=== PATIENT | male | born 1950 | race Caucasian/White ===

== ENCOUNTER 2019-11-22 07:58 | Outpatient (REF) | payer MEDICARE, OTHER, SELFPAY ==
[2019-11-22 08:52] LABS: Alanine Aminotransferase 31 U/L (0-40); Albumin Level 4.3 g/dL (3.5-5.0); Alkaline Phosphatase 47 U/L (39-117); Anion Gap 11 (12-20); Aspartate Amino Transferase 29 U/L (5-37); Bilirubin Total 0.5 mg/dL (0.0-1.0); Blood Urea Nitrogen 19 mg/dL (9-16); Calcium 8.9 mg/dL (8.4-10.2); Carbon Dioxide 30 mmol/L (22-29); Chloride 104 mmol/L (96-108); Cholesterol 191 mg/dL; Estimated Glomerular Filt Rate > 60; Glucose Fasting 112 mg/dL (60-99); HDL Cholesterol 44 mg/dL; LDL Cholesterol Calculated 134 mg/dl; Potassium 4.5 mmol/l (3.3-5.1); Sodium 140 mmol/L (135-145); Total Protein 6.4 g/dL (6.5-8.0); Triglycerides 66 mg/dL
[2019-11-22 09:15] LABS: Estimated Average Glucose 123 mg/dL; Hemoglobin A1c % 5.9 %
== END 2019-11-22 07:59 | disposition home or self-care (01) ==
LOC: HO.LAB 07:58
PROVIDERS: PCP Internal Medicine; Visit Provider Internal Medicine
DX: E78.5 Hyperlipidemia, unspecified (principal); R73.01 Impaired fasting glucose
CPT/HCPCS: 80053; 80061; 83036

== ENCOUNTER 2020-02-14 09:12 | Outpatient (REF) | payer MEDICARE, OTHER, SELFPAY ==
[2020-02-14 11:01] LABS: Alanine Aminotransferase 30 U/L (0-40); Albumin Level 4.4 g/dL (3.5-5.0); Alkaline Phosphatase 46 U/L (39-117); Anion Gap 9 (12-20); Aspartate Amino Transferase 23 U/L (5-37); Bilirubin Total 0.3 mg/dL (0.0-1.0); Blood Urea Nitrogen 15 mg/dL (9-16); Calcium 8.9 mg/dL (8.4-10.2); Carbon Dioxide 32 mmol/L (22-29); Chloride 104 mmol/L (96-108); Cholesterol 176 mg/dL; Estimated Glomerular Filt Rate > 60; Glucose Fasting 128 mg/dL (60-99); HDL Cholesterol 48 mg/dL; LDL Cholesterol Calculated 119 mg/dl; Potassium 4.7 mmol/l (3.3-5.1); Sodium 140 mmol/L (135-145); Total Protein 6.6 g/dL (6.5-8.0); Triglycerides 45 mg/dL
== END 2020-02-14 09:13 | disposition home or self-care (01) ==
LOC: HO.LAB 09:12
PROVIDERS: PCP Internal Medicine; Visit Provider Internal Medicine
DX: E78.00 Pure hypercholesterolemia, unspecified (principal); R73.01 Impaired fasting glucose
CPT/HCPCS: 36415; 80053; 80061

== ENCOUNTER 2020-07-15 07:08 | Outpatient (REF) | payer MEDICARE, OTHER, SELFPAY ==
[2020-07-15 07:48] LABS: MANUAL DIFF FLAG NO
[2020-07-15 07:55] LABS: Basophils Absolute Auto 0.1 X10*3/uL (0.0-0.2); Basophils Percent Auto 1.7 % (0-2); Eosinophils Absolute Auto 0.6 X10*3/uL (0.0-0.4); Eosinophils Percent Auto 10.6 % (0-4); Glucose Urine UA NEG (NEG); Hematocrit 47.3 % (42-52); Hemoglobin 15.6 g/dl (14.0-18.0); Imm Gran Abs Auto 0.02 X10*3/uL (0.00-0.03); Imm Gran Pct Auto 0.3 % (0.0-0.4); Leukocyte Esterase Urine NEG (NEG); Lymphocytes Absolute Auto 1.6 X10*3/uL (1.2-4.9); Lymphocytes Percent Auto 27.9 % (20-40); Mean Corpuscular Hemoglobin 31.4 pg (27.0-33.0); Mean Corpuscular Volume 95.2 fL (80-98); Mean Platelet Volume 10.9 fL (9.4-12.4); Monocytes Absolute Auto 0.6 X10*3/uL (0.1-1.2); Monocytes Percent Auto 10.9 % (2-11); Neutrophils Absolute Auto 2.8 X10*3/uL (2.0-8.3); Neutrophils Percent Auto 48.6 % (45-73); Nitrite Urine NEG (NEG); Platelet Count 222 X10*3/uL (160-400); Red Blood Count 4.97 X10*6/uL (4.60-5.80); Red Cell Distribution Width 12.9 % (11.0-16.0); Specific Gravity - Urine 1.025 (1.005-1.025); Urine Blood NEG (NEG); Urine Ketones NEG (NEG); Urine Protein NEG (NEG-TRACE); White Blood Count 5.9 X10*3/uL (4.8-10.8)
[2020-07-15 07:58] LABS: Appearance Urine HAZY; Color Urine YELLOW
[2020-07-15 08:06] LABS: Alanine Aminotransferase 33 U/L (0-40); Albumin Level 4.3 g/dL (3.5-5.0); Alkaline Phosphatase 45 U/L (39-117); Anion Gap 13 (12-20); Aspartate Amino Transferase 37 U/L (5-37); Bilirubin Total 0.5 mg/dL (0.0-1.0); Blood Urea Nitrogen 20 mg/dL (9-16); Calcium 9.1 mg/dL (8.4-10.2); Carbon Dioxide 27 mmol/L (22-29); Chloride 104 mmol/L (96-108); Cholesterol 182 mg/dL; Estimated Glomerular Filt Rate > 60; Glucose Fasting 112 mg/dL (60-99); HDL Cholesterol 50 mg/dL; LDL Cholesterol Calculated 123 mg/dl; Potassium 4.3 mmol/L (3.3-5.1); Sodium 140 mmol/L (135-145); Total Protein 6.6 g/dL (6.5-8.0); Triglycerides 46 mg/dL
[2020-07-15 08:27] LABS: Prostate Specific Antigen Scr 0.87 ng/mL (<0.05-4.0); TSH reflex Free T4 1.19 uIU/mL (0.32-4.0)
== END 2020-07-15 07:09 | disposition home or self-care (01) ==
LOC: HO.LAB 07:08
PROVIDERS: PCP Internal Medicine; Visit Provider Internal Medicine
DX: Z00.00 Encounter for general adult medical examination without abnormal findings (principal); Z12.5 Encounter for screening for malignant neoplasm of prostate; E78.00 Pure hypercholesterolemia, unspecified; R73.01 Impaired fasting glucose; K21.9 Gastro-esophageal reflux disease without esophagitis; J44.9 Chronic obstructive pulmonary disease, unspecified; E66.3 Overweight
CPT/HCPCS: 36415; 80053; 80061; 81003; 84153; 84443; 85025

== ENCOUNTER → 2020-07-26 09:29 | Outpatient (REF) | payer MEDICARE, OTHER, SELFPAY ==
--- NOTE | 2020-07-26 09:33 | CA_ITS ---
Acquisition Time: 2020-07-26 09:41:45 Total Exercise Time: 00:09:11 Test Indications: Chest Pain Medications: CYCLOBENZAPRINE XOPENEX LORAZAPAM MECLIZINE PANTOPRAZOLE TRAMADOL Protocol: PARDEEP Max HR: 130 BPM 86% of Pred: 151 BPM Max BP: 180/070 mmHG Max Work Load: 10.4 METS Exercise stress test with exercise 9 min 11 sec of Pardeep protocol, with mild shortness of breath, no chest discomfort or palpitations, with rare isolated PVC and 3 ventricular cuplets in stage 3, without EKG changes meeting criteria for ischemia. Test reviewed with Dr Marrero. Referred By: Sunny Gallagher Overread By: DISHA FLETCHER
== END ==
LOC: HO.CARD 09:29
PROVIDERS: PCP Internal Medicine; Visit Provider Internal Medicine
DX: R07.9 Chest pain, unspecified (principal); E78.00 Pure hypercholesterolemia, unspecified; R73.01 Impaired fasting glucose
CPT/HCPCS: 93017

== ENCOUNTER 2020-08-09 09:02 | Outpatient (REF) | payer MEDICARE, OTHER, SELFPAY ==
--- NOTE | 2020-08-09 10:09 | PFT_ITS ---
Forced vital capacity is slightly decreased. FEV1/RTJ60-24 are moderately decreased. MVV slightly decreased. Post bronchodilator therapy, there is a significant improvement in FVC, FEV1, VCM80-24. Total lung capacity is normal. Residual volume moderately increased. Diffusion capacity is slightly decreased. CONCLUSION: Obstructive airway disorder, moderately severe. Good response to bronchodilator therapy. These findings are consistent with asthma/COPD overlap syndrome. Clinical correlation recommended. MD NARGIS Aquino/ANGELITA / [id number]
== END 2020-08-09 09:03 | disposition home or self-care (01) ==
LOC: HO.RESP 09:02
PROVIDERS: PCP Internal Medicine; Visit Provider Internal Medicine
DX: J44.9 Chronic obstructive pulmonary disease, unspecified (principal)
CPT/HCPCS: 94060; 94727; 94729

== ENCOUNTER 2020-11-21 10:08 | Outpatient (REF) | payer MEDICARE, OTHER, SELFPAY ==
[2020-11-21 10:32] LABS: MANUAL DIFF FLAG NO
[2020-11-21 11:04] LABS: Appearance Urine CLEAR; Color Urine YELLOW; Glucose Urine UA NEG (NEG); Leukocyte Esterase Urine NEG (NEG); Nitrite Urine NEG (NEG); Urine Blood NEG (NEG); Urine Ketones NEG (NEG); Urine Protein NEG (NEG-TRACE)
[2020-11-21 11:06] LABS: Basophils Absolute Auto 0.1 X10*3/uL (0.0-0.2); Basophils Percent Auto 1.5 % (0-2); Eosinophils Absolute Auto 0.4 X10*3/uL (0.0-0.4); Eosinophils Percent Auto 7.5 % (0-4); Hematocrit 47.2 % (42-52); Hemoglobin 15.2 g/dl (14.0-18.0); Imm Gran Abs Auto 0.02 X10*3/uL (0.00-0.03); Imm Gran Pct Auto 0.4 % (0.0-0.4); Lymphocytes Absolute Auto 1.2 X10*3/uL (1.2-4.9); Lymphocytes Percent Auto 20.9 % (20-40); Mean Corpuscular HGB Conc 32.2 g/dl (31.0-36.0); Mean Corpuscular Hemoglobin 30.9 pg (27.0-33.0); Mean Corpuscular Volume 95.9 fL (80-98); Mean Platelet Volume 10.3 fL (9.4-12.4); Monocytes Absolute Auto 0.5 X10*3/uL (0.1-1.2); Monocytes Percent Auto 9.6 % (2-11); Neutrophils Absolute Auto 3.3 X10*3/uL (2.0-8.3); Neutrophils Percent Auto 60.1 % (45-73); Platelet Count 234 X10*3/uL (160-400); Red Blood Count 4.92 X10*6/uL (4.60-5.80); Red Cell Distribution Width 13.3 % (11.0-16.0); White Blood Count 5.5 X10*3/uL (4.8-10.8)
[2020-11-21 11:32] LABS: Alanine Aminotransferase 33 U/L (0-40); Albumin Level 4.4 g/dL (3.5-5.0); Alkaline Phosphatase 59 U/L (39-117); Anion Gap 9 (12-20); Aspartate Amino Transferase 30 U/L (5-37); Bilirubin Total 0.5 mg/dL (0.0-1.0); Blood Urea Nitrogen 12 mg/dL (9-16); Calcium 9.1 mg/dL (8.4-10.2); Carbon Dioxide 31 mmol/L (22-29); Chloride 105 mmol/L (96-108); Cholesterol 200 mg/dL; Estimated Glomerular Filt Rate > 60; Glucose Fasting 105 mg/dL (60-99); HDL Cholesterol 42 mg/dL; LDL Cholesterol Calculated 150 mg/dl; Potassium 5.1 mmol/L (3.3-5.1); Sodium 140 mmol/L (135-145); Total Protein 6.7 g/dL (6.5-8.0); Triglycerides 41 mg/dL
[2020-11-21 11:53] LABS: TSH reflex Free T4 1.47 uIU/mL (0.32-4.0)
== END 2020-11-21 10:09 | disposition home or self-care (01) ==
LOC: HO.LAB 10:08
PROVIDERS: PCP Internal Medicine; Visit Provider Internal Medicine
DX: I10 Essential (primary) hypertension (principal); K21.9 Gastro-esophageal reflux disease without esophagitis; E78.00 Pure hypercholesterolemia, unspecified; R73.01 Impaired fasting glucose; E66.3 Overweight
CPT/HCPCS: 36415; 80053; 80061; 81003; 84443; 85025

== ENCOUNTER 2021-02-13 07:49 | Outpatient (REF) | payer MEDICARE, OTHER, SELFPAY ==
[2021-02-13 08:12] LABS: MANUAL DIFF FLAG NO
[2021-02-13 09:00] LABS: Basophils Absolute Auto 0.1 X10*3/uL (0.0-0.2); Basophils Percent Auto 1.3 % (0-2); Eosinophils Absolute Auto 0.5 X10*3/uL (0.0-0.4); Hemoglobin 15.4 g/dl (14.0-18.0); Imm Gran Abs Auto 0.09 X10*3/uL (0.00-0.03); Imm Gran Pct Auto 1.2 % (0.0-0.4); Lymphocytes Percent Auto 26.7 % (20-40); Mean Corpuscular HGB Conc 32.8 g/dl (31.0-36.0); Mean Corpuscular Hemoglobin 30.9 pg (27.0-33.0); Mean Corpuscular Volume 94.4 fL (80.0-98.0); Monocytes Absolute Auto 0.7 X10*3/uL (0.1-1.2); Neutrophils Absolute Auto 4.1 x10*3/uL (2.0-8.3); Neutrophils Percent Auto 54.8 % (45-73); Platelet Count 231 X10*3/uL (160-400); Red Blood Count 4.98 X10*6/uL (4.60-5.80); Red Cell Distribution Width 13.1 % (11.0-16.0); White Blood Count 7.4 X10*3/uL (4.8-10.8)
[2021-02-13 09:07] LABS: Appearance Urine CLEAR; Color Urine YELLOW; Glucose Urine UA NEG (NEG); Leukocyte Esterase Urine NEG (NEG); Nitrite Urine NEG (NEG); Specific Gravity - Urine >= 1.030 (1.005-1.025); Urine Blood NEG (NEG); Urine Ketones NEG (NEG); Urine Protein NEG (NEG-TRACE)
[2021-02-13 09:45] LABS: Alanine Aminotransferase 28 U/L (0-40); Albumin Level 4.2 g/dL (3.5-5.0); Alkaline Phosphatase 48 U/L (39-117); Anion Gap 11 (12-20); Aspartate Amino Transferase 21 U/L (5-37); Bilirubin Total 0.3 mg/dL (0.0-1.0); Blood Urea Nitrogen 18 mg/dL (9-16); Calcium 9.7 mg/dL (8.4-10.2); Carbon Dioxide 31 mmol/L (22-29); Chloride 106 mmol/L (96-108); Cholesterol 184 mg/dL; Estimated Glomerular Filt Rate > 60; Glucose Fasting 119 mg/dL (60-99); HDL Cholesterol 46 mg/dL; LDL Cholesterol Calculated 128 mg/dl; Potassium 5.1 mmol/L (3.3-5.1); Sodium 143 mmol/L (135-145); Total Protein 6.5 g/dL (6.5-8.0); Triglycerides 53 mg/dL
[2021-02-13 09:58] LABS: TSH reflex Free T4 2.47 uIU/mL (0.32-4.0)
== END 2021-02-13 07:50 | disposition home or self-care (01) ==
LOC: HO.LAB 07:49
PROVIDERS: PCP Internal Medicine; Visit Provider Internal Medicine
DX: I10 Essential (primary) hypertension (principal); E78.00 Pure hypercholesterolemia, unspecified; R73.01 Impaired fasting glucose
CPT/HCPCS: 36415; 80053; 80061; 81003; 84443; 85025

== ENCOUNTER 2021-06-18 11:50 | Outpatient (REF) | payer MEDICARE, OTHER, SELFPAY ==
[2021-06-18 12:07] LABS: MANUAL DIFF FLAG NO
[2021-06-18 12:23] LABS: Basophils Absolute Auto 0.1 X10*3/uL (0.0-0.2); Basophils Percent Auto 1.6 % (0-2); Eosinophils Absolute Auto 0.4 X10*3/uL (0.0-0.4); Eosinophils Percent Auto 5.9 % (0-4); Hematocrit 49.6 % (42.0-52.0); Hemoglobin 16.5 g/dl (14.0-18.0); Imm Gran Abs Auto 0.06 X10*3/uL (0.00-0.03); Imm Gran Pct Auto 0.8 % (0.0-0.4); Lymphocytes Absolute Auto 1.5 X10*3/uL (1.2-4.9); Lymphocytes Percent Auto 21.2 % (20-40); Mean Corpuscular HGB Conc 33.3 g/dl (31.0-36.0); Mean Corpuscular Hemoglobin 31.8 pg (27.0-33.0); Mean Corpuscular Volume 95.6 fL (80.0-98.0); Mean Platelet Volume 10.3 fL (9.4-12.4); Monocytes Absolute Auto 0.6 X10*3/uL (0.1-1.2); Monocytes Percent Auto 7.6 % (2-11); Neutrophils Absolute Auto 4.6 x10*3/uL (2.0-8.3); Neutrophils Percent Auto 62.9 % (45-73); Platelet Count 225 X10*3/uL (160-400); Red Blood Count 5.19 X10*6/uL (4.60-5.80); Red Cell Distribution Width 13.1 % (11.0-16.0); White Blood Count 7.3 X10*3/uL (4.8-10.8)
[2021-06-18 12:29] LABS: Estimated Average Glucose 128 mg/dL; Hemoglobin A1c % 6.1 %
[2021-06-18 13:04] LABS: Alanine Aminotransferase 25 U/L (0-40); Albumin Level 4.1 g/dL (3.5-5.0); Alkaline Phosphatase 44 U/L (39-117); Anion Gap 12 (12-20); Aspartate Amino Transferase 21 U/L (5-37); Bilirubin Total 0.4 mg/dL (0.0-1.0); Blood Urea Nitrogen 16 mg/dL (9-16); Calcium 9.3 mg/dL (8.4-10.2); Carbon Dioxide 30 mmol/L (22-29); Chloride 104 mmol/L (96-108); Cholesterol 207 mg/dL; Estimated Glomerular Filt Rate > 60; Glucose Fasting 117 mg/dL (60-99); HDL Cholesterol 41 mg/dL; LDL Cholesterol Calculated 155 mg/dl; Potassium 4.7 mmol/L (3.3-5.1); Sodium 141 mmol/L (135-145); Total Protein 6.8 g/dL (6.5-8.0); Triglycerides 58 mg/dL
[2021-06-18 13:27] LABS: TSH reflex Free T4 1.42 uIU/mL (0.32-4.0); Vitamin D 25-OH Total 76.6 ng/mL (>30)
[2021-06-18 14:00] LABS: Appearance Urine CLEAR; Color Urine YELLOW; Glucose Urine UA NEG (NEG); Leukocyte Esterase Urine NEG (NEG); Nitrite Urine NEG (NEG); Specific Gravity - Urine 1.015 (1.005-1.025); Urine Blood NEG (NEG); Urine Ketones NEG (NEG); Urine Protein TRACE MG/DL (NEG-TRACE)
== END 2021-06-18 11:51 | disposition home or self-care (01) ==
LOC: HO.LAB 11:50
PROVIDERS: PCP Internal Medicine; Visit Provider Internal Medicine
DX: R73.01 Impaired fasting glucose (principal); J44.9 Chronic obstructive pulmonary disease, unspecified; K21.9 Gastro-esophageal reflux disease without esophagitis; E55.9 Vitamin D deficiency, unspecified; E78.00 Pure hypercholesterolemia, unspecified
CPT/HCPCS: 36415; 80053; 80061; 81003; 82306; 83036; 84443; 85025

== ENCOUNTER 2021-11-26 11:11 | Outpatient (REF) | payer MEDICARE, OTHER, SELFPAY ==
[2021-11-26 11:22] LABS: MANUAL DIFF FLAG NO
[2021-11-26 12:05] LABS: Basophils Absolute Auto 0.1 X10*3/uL (0.0-0.2); Basophils Percent Auto 1.9 % (0-2); Eosinophils Absolute Auto 0.5 X10*3/uL (0.0-0.4); Hematocrit 46.2 % (42.0-52.0); Hemoglobin 15.6 g/dl (14.0-18.0); Imm Gran Abs Auto 0.05 X10*3/uL (0.00-0.03); Imm Gran Pct Auto 0.7 % (0.0-0.4); Lymphocytes Absolute Auto 1.8 X10*3/uL (1.2-4.9); Lymphocytes Percent Auto 26.3 % (20-40); Mean Corpuscular HGB Conc 33.8 g/dl (31.0-36.0); Mean Corpuscular Hemoglobin 32.3 pg (27.0-33.0); Mean Corpuscular Volume 95.7 fL (80.0-98.0); Mean Platelet Volume 10.4 fL (9.4-12.4); Monocytes Absolute Auto 0.5 X10*3/uL (0.1-1.2); Monocytes Percent Auto 7.6 % (2-11); Neutrophils Absolute Auto 3.9 x10*3/uL (2.0-8.3); Neutrophils Percent Auto 56.5 % (45-73); Platelet Count 228 X10*3/uL (160-400); Red Blood Count 4.83 X10*6/uL (4.60-5.80); White Blood Count 6.9 X10*3/uL (4.8-10.8)
[2021-11-26 12:11] LABS: Appearance Urine Clear; Color Urine Yellow; Glucose Urine UA Negative (Negative); Leukocyte Esterase Urine Negative (Negative); Nitrite Urine Negative (Negative); PH 5.5 (5.0-9.0); Urine Blood Negative (Negative); Urine Ketones Negative (Negative); Urine Protein Negative (Neg-Trace)
[2021-11-26 12:20] LABS: Estimated Average Glucose 120 mg/dL; Hemoglobin A1C 151.6787 umol/L; Hemoglobin A1c % 5.8 %
[2021-11-26 12:32] LABS: Alanine Aminotransferase 28 U/L (0-40); Albumin Level 4.4 g/dL (3.5-5.0); Alkaline Phosphatase 53 U/L (39-117); Anion Gap 14 (12-20); Aspartate Amino Transferase 23 U/L (5-37); Bilirubin Total 0.4 mg/dL (0.0-1.0); Blood Urea Nitrogen 16 mg/dL (9-16); Calcium 9.3 mg/dL (8.4-10.2); Carbon Dioxide 29 mmol/L (22-29); Chloride 101 mmol/L (96-108); Cholesterol 207 mg/dL; Estimated Glomerular Filt Rate > 60; Glucose Fasting 118 mg/dL (60-99); HDL Cholesterol 39 mg/dL; LDL Cholesterol Calculated 155 mg/dl; Sodium 139 mmol/L (135-145); Total Protein 6.8 g/dL (6.5-8.0); Triglycerides 65 mg/dL
[2021-11-26 12:56] LABS: TSH reflex Free T4 1.12 uIU/mL (0.32-4.0); Vitamin D 25-OH Total 71.2 ng/mL (>30)
== END 2021-11-26 11:12 | disposition home or self-care (01) ==
LOC: HO.LAB 11:11
PROVIDERS: PCP Internal Medicine; Visit Provider Internal Medicine
DX: E78.00 Pure hypercholesterolemia, unspecified (principal); E55.9 Vitamin D deficiency, unspecified; I10 Essential (primary) hypertension; E11.9 Type 2 diabetes mellitus without complications
CPT/HCPCS: 36415; 80053; 80061; 81003; 82306; 83036; 84443; 85025

== ENCOUNTER 2022-02-12 10:42 | Outpatient (REF) | payer MEDICARE, OTHER, SELFPAY ==
[2022-02-12 11:01] LABS: MANUAL DIFF FLAG NO
[2022-02-12 11:46] LABS: Basophils Absolute Auto 0.1 X10*3/uL (0.0-0.2); Basophils Percent Auto 1.6 % (0-2); Eosinophils Absolute Auto 0.3 X10*3/uL (0.0-0.4); Eosinophils Percent Auto 3.8 % (0-4); Hematocrit 48.4 % (42.0-52.0); Hemoglobin 16.1 g/dl (14.0-18.0); Imm Gran Abs Auto 0.03 X10*3/uL (0.00-0.03); Imm Gran Pct Auto 0.4 % (0.0-0.4); Lymphocytes Absolute Auto 1.5 X10*3/uL (1.2-4.9); Lymphocytes Percent Auto 19.9 % (20-40); Mean Corpuscular HGB Conc 33.3 g/dl (31.0-36.0); Mean Corpuscular Volume 93.1 fL (80.0-98.0); Mean Platelet Volume 10.9 fL (9.4-12.4); Monocytes Absolute Auto 0.6 X10*3/uL (0.1-1.2); Monocytes Percent Auto 7.5 % (2-11); Neutrophils Absolute Auto 5.1 x10*3/uL (2.0-8.3); Neutrophils Percent Auto 66.8 % (45-73); Platelet Count 220 X10*3/uL (160-400); Red Cell Distribution Width 13.2 % (11.0-16.0); White Blood Count 7.6 X10*3/uL (4.8-10.8)
[2022-02-12 11:53] LABS: Appearance Urine Clear; Color Urine Yellow; Glucose Urine UA Negative (Negative); Leukocyte Esterase Urine Negative (Negative); Nitrite Urine Negative (Negative); PH 6.5 (5.0-9.0); Urine Blood Negative (Negative); Urine Ketones Negative (Negative); Urine Protein Negative (Neg-Trace)
[2022-02-12 11:56] LABS: Estimated Average Glucose 128 mg/dL; Hemoglobin A1c % 6.1 %
[2022-02-12 13:06] LABS: Alanine Aminotransferase 25 U/L (0-40); Albumin Level 4.5 g/dL (3.5-5.0); Alkaline Phosphatase 50 U/L (39-117); Anion Gap 10 (12-20); Aspartate Amino Transferase 25 U/L (5-37); Bilirubin Total 0.7 mg/dL (0.0-1.0); Blood Urea Nitrogen 12 mg/dL (9-16); Calcium 9.7 mg/dL (8.4-10.2); Carbon Dioxide 31 mmol/L (22-29); Chloride 104 mmol/L (96-108); Cholesterol 196 mg/dL; Estimated Glomerular Filt Rate > 60; Glucose Fasting 117 mg/dL (60-99); HDL Cholesterol 44 mg/dL; LDL Cholesterol Calculated 139 mg/dl; Potassium 5.1 mmol/L (3.3-5.1); Sodium 140 mmol/L (135-145); Total Protein 6.9 g/dL (6.5-8.0); Triglycerides 67 mg/dL
[2022-02-12 13:31] LABS: TSH reflex Free T4 1.41 uIU/mL (0.32-4.0); Vitamin D 25-OH Total 62.5 ng/mL (>30)
== END 2022-02-12 10:43 | disposition home or self-care (01) ==
LOC: HO.LAB 10:42
PROVIDERS: PCP Internal Medicine; Visit Provider Internal Medicine
DX: R30.0 Dysuria (principal); I10 Essential (primary) hypertension; E55.9 Vitamin D deficiency, unspecified; R73.01 Impaired fasting glucose; E78.00 Pure hypercholesterolemia, unspecified
CPT/HCPCS: 36415; 80053; 80061; 81003; 82306; 83036; 84443; 85025

== ENCOUNTER 2022-06-14 10:41 | Outpatient (REF) | payer MEDICARE, OTHER, SELFPAY ==
[2022-06-14 10:53] LABS: MANUAL DIFF FLAG NO
[2022-06-14 11:54] LABS: Basophils Absolute Auto 0.1 X10*3/uL (0.0-0.2); Eosinophils Absolute Auto 0.6 X10*3/uL (0.0-0.4); Eosinophils Percent Auto 8.5 % (0-4); Hematocrit 49.7 % (42.0-52.0); Hemoglobin 16.1 g/dl (14.0-18.0); Imm Gran Abs Auto 0.04 X10*3/uL (0.00-0.03); Imm Gran Pct Auto 0.6 % (0.0-0.4); Lymphocytes Absolute Auto 1.5 X10*3/uL (1.2-4.9); Lymphocytes Percent Auto 23.5 % (20-40); Mean Corpuscular HGB Conc 32.4 g/dl (31.0-36.0); Mean Corpuscular Hemoglobin 31.1 pg (27.0-33.0); Mean Corpuscular Volume 95.9 fL (80.0-98.0); Mean Platelet Volume 10.5 fL (9.4-12.4); Monocytes Absolute Auto 0.5 X10*3/uL (0.1-1.2); Monocytes Percent Auto 7.8 % (2-11); Neutrophils Absolute Auto 3.7 x10*3/uL (2.0-8.3); Neutrophils Percent Auto 57.6 % (45-73); Platelet Count 265 X10*3/uL (160-400); Red Blood Count 5.18 X10*6/uL (4.60-5.80); Red Cell Distribution Width 13.1 % (11.0-16.0); White Blood Count 6.5 X10*3/uL (4.8-10.8)
[2022-06-14 12:18] LABS: Appearance Urine Clear; Color Urine Yellow; Glucose Urine UA Negative (Negative); Leukocyte Esterase Urine Negative (Negative); Nitrite Urine Negative (Negative); PH 6.5 (5.0-9.0); Specific Gravity - Urine 1.025 (1.005-1.025); Urine Blood Negative (Negative); Urine Ketones Negative (Negative); Urine Protein Negative (Neg-Trace)
[2022-06-14 12:23] LABS: Estimated Average Glucose 126 mg/dL
[2022-06-14 12:55] LABS: Alanine Aminotransferase 26 U/L (0-40); Albumin Level 4.3 g/dL (3.5-5.0); Alkaline Phosphatase 43 U/L (39-117); Anion Gap 15 (12-20); Aspartate Amino Transferase 24 U/L (5-37); Bilirubin Total 0.5 mg/dL (0.0-1.0); Blood Urea Nitrogen 17 mg/dL (9-16); Calcium 9.8 mg/dL (8.4-10.2); Carbon Dioxide 28 mmol/L (22-29); Chloride 105 mmol/L (96-108); Cholesterol 209 mg/dL; Estimated Glomerular Filt Rate > 60; Glucose Fasting 115 mg/dL (60-99); HDL Cholesterol 41 mg/dL; LDL Cholesterol Calculated 154 mg/dl; Potassium 4.8 mmol/L (3.3-5.1); Sodium 143 mmol/L (135-145); Total Protein 6.7 g/dL (6.5-8.0); Triglycerides 74 mg/dL
[2022-06-14 12:59] LABS: Prostate Specific Antigen 1.08 ng/mL (<0.05-4.0); TSH reflex Free T4 1.93 uIU/mL (0.32-4.0); Vitamin D 25-OH Total 86.9 ng/mL (>30)
== END 2022-06-14 10:42 | disposition home or self-care (01) ==
LOC: HO.LAB 10:41
PROVIDERS: PCP Internal Medicine; Visit Provider Internal Medicine
DX: Z00.00 Encounter for general adult medical examination without abnormal findings (principal); N40.0 Benign prostatic hyperplasia without lower urinary tract symptoms; E11.9 Type 2 diabetes mellitus without complications; I10 Essential (primary) hypertension; E55.9 Vitamin D deficiency, unspecified; R30.0 Dysuria; E78.00 Pure hypercholesterolemia, unspecified; Z12.5 Encounter for screening for malignant neoplasm of prostate
CPT/HCPCS: 36415; 80053; 80061; 81003; 82306; 83036; 84153; 84443; 85025

== ENCOUNTER 2023-01-28 12:01 | Outpatient (REF) | payer MEDICARE, OTHER, SELFPAY ==
[2023-01-28 12:13] LABS: MANUAL DIFF FLAG NO
[2023-01-28 12:26] LABS: Basophils Absolute Auto 0.1 X10*3/uL (0.0-0.2); Eosinophils Absolute Auto 0.4 X10*3/uL (0.0-0.4); Eosinophils Percent Auto 7.2 % (0-4); Hematocrit 46.5 % (42.0-52.0); Hemoglobin 15.5 g/dl (14.0-18.0); Imm Gran Abs Auto 0.03 X10*3/uL (0.00-0.03); Imm Gran Pct Auto 0.5 % (0.0-0.4); Lymphocytes Absolute Auto 1.4 X10*3/uL (1.2-4.9); Lymphocytes Percent Auto 22.5 % (20-40); Mean Corpuscular HGB Conc 33.3 g/dl (31.0-36.0); Mean Corpuscular Hemoglobin 31.6 pg (27.0-33.0); Mean Corpuscular Volume 94.7 fL (80.0-98.0); Mean Platelet Volume 10.3 fL (9.4-12.4); Monocytes Absolute Auto 0.5 X10*3/uL (0.1-1.2); Monocytes Percent Auto 7.5 % (2-11); Neutrophils Absolute Auto 3.6 x10*3/uL (2.0-8.3); Neutrophils Percent Auto 60.3 % (45-73); Platelet Count 219 X10*3/uL (160-400); Red Blood Count 4.91 X10*6/uL (4.60-5.80); Red Cell Distribution Width 12.9 % (11.0-16.0)
[2023-01-28 12:33] LABS: Estimated Average Glucose 128 mg/dL; Hemoglobin A1c % 6.1 % (<6.0)
[2023-01-28 13:04] LABS: Alanine Aminotransferase 25 U/L (0-40); Albumin Level 4.4 g/dL (3.5-5.0); Alkaline Phosphatase 51 U/L (39-117); Anion Gap 11 (12-20); Aspartate Amino Transferase 28 U/L (5-37); Bilirubin Total 0.4 mg/dL (0.0-1.0); Blood Urea Nitrogen 12 mg/dL (9-16); Calcium 9.1 mg/dL (8.4-10.2); Carbon Dioxide 31 mmol/L (22-29); Chloride 107 mmol/L (96-108); Cholesterol 192 mg/dL (<200); Estimated Glomerular Filt Rate > 60; Glucose Fasting 124 mg/dL (60-99); HDL Cholesterol 49 mg/dL (>40); LDL Cholesterol Calculated 134 mg/dL (<100); Potassium 4.6 mmol/L (3.3-5.1); Sodium 144 mmol/L (135-145); Total Protein 6.9 g/dL (6.5-8.0); Triglycerides 46 mg/dL (<150)
[2023-01-28 13:28] LABS: Vitamin D 25-OH Total 78.1 ng/mL (>30)
== END 2023-01-28 12:02 | disposition home or self-care (01) ==
LOC: HO.LAB 12:01
PROVIDERS: PCP Internal Medicine; Visit Provider Internal Medicine
DX: E78.00 Pure hypercholesterolemia, unspecified (principal); E55.9 Vitamin D deficiency, unspecified; R73.01 Impaired fasting glucose; I10 Essential (primary) hypertension
CPT/HCPCS: 36415; 80053; 80061; 82306; 83036; 85025

== ENCOUNTER 2023-01-29 14:15 | Outpatient (AMB) | payer MEDICARE, OTHER, SELFPAY ==
[2023-01-29 14:16] VITALS: BP 110/78; PULSE 65; O2SAT 95; BMI 28.5
--- NOTE | 2023-01-29 14:16 | MHC.PC.OV ---
Vital Signs 01/29/23 14:16 Height 6 ft 2 in Weight 222 lb BMI 28.5 BP 110/78 Blood Pressure Location Lt brachial Position Sitting Pulse 65 Pulse Source Pulse Oximeter Pulse Oximetry (%) 95 Oxygen Delivery Method Room Air Intake Visit Reasons: hyperlipidemia, COPD, IFG Technical Support Professional Required: No Accompanied by: Self / Same As Patient Allergies atorvastatin Adverse Reaction (Intermediate, Uncoded 01/29/23 14:55) myalgia Medication List - Last Reconciled 01/29/23 by Sunny Gallagher MD cyclobenzaprine 10 mg PO TID PRN levalbuterol tartrate 45 mcg/actuation (Xopenex HFA) 2 puffs inhalation Q4-6H PRN lorazepam 0.5 mg PO DAILY PRN 30 days meclizine 25 mg PO TID PRN pantoprazole 20 mg PO DAILY 90 days tadalafil 20 mg PO DAILY PRN tramadol 50 mg PO Q6-8H PRN umeclidinium 62.5 mcg/actuation (Incruse Ellipta) 1 inh inhalation DAILY 90 days Tobacco use date assessed: 01/29/23 Fall risk assessment: No Falls in past year Last assessed Fall Risk: 01/29/23 Dental Screening Dental Screen Date: 01/29/23 Did you have a dental visit in the last 12 months?: Yes Did you have a dental problem in the last 6 months where you did not have access to dental care?: No Was dental information given to patient?: Patient has dentist HPI hyperlipidemia, COPD, IFG HPI Details Patient comes in today for his follow up visit States that he just got back from [place] a couple of days ago (01/27/23) and will be getting back down there next month on 02/15/2023 and will not be back here again until the end of May 2023 Admitted that he stopped taking his Atorvastatin 10 mg QD a couple of weeks ago States that he was experiencing a lot of diffuse muscle aches and pains all the time while he was on his Rx He denies any headaches or dizziness Denies any chest pains; still has some SOB with increased exertion at times but states that this is mild and unchanged from before No nausea/vomiting, no abdominal pain No change in bowel habits noted Would like to get a refill on his Lorazepam Rx Had her follow up labs done yesterday - to discuss his results [facility] Medical History Left-sided chest pain Overweight (BMI 25.0-29.9) GERD (gastroesophageal reflux disease) Carpal tunnel syndrome of right wrist Lumbar degenerative disc disease Degenerative disc disease, cervical Primary osteoarthritis, right shoulder Impaired fasting glucose Pure hypercholesterolemia COPD (chronic obstructive pulmonary disease) Surgical History Status post colonoscopy (~12/13/13) History of arthroplasty of right shoulder History of carpal tunnel release Family History Father CVD (cardiovascular disease) Cancer Mother No problems noted. Social History Housing: House Alcohol intake: former Patient Tobacco Use Status: Former Tobacco user e-Cigarette/Vaping Use: Never Used Second Hand Smoke Exposure: Yes service: No Current occupational status: retired Cognitive needs: No Hearing needs: No Vision needs: Yes Questionnaire PHQ-9 Over the last 2 weeks, how often have you been bothered by any of the following problems? 1. Little interest or pleasure in doing things: not at all 2. Feeling down, depressed, or hopeless: not at all 3. Trouble falling or staying asleep, or sleeping too much: not at all 4. Feeling tired or having little energy: not at all 5. Poor appetite or overeating: not at all 6. Feeling bad about yourself - or that you are a failure or have let yourself or your family down: not at all 7. Trouble concentrating on things, such as reading the newspaper or watching television: not at all 8. Moving or speaking so slowly that other people could have noticed. Or the opposite - being so fidgety or restless that you have been moving around a lot more than usual: not at all 9. Thoughts that you would be better off or of hurting yourself in some way: not at all Total score: 0 Depression Screening Interpretation: Negative Depression Screening Done: Yes 33403 - PHQ-9 Billing: Yes Source: Developed by Drs. Jimmy Guerra, Lesly B.W. Mauilk Rivas and colleagues, with an educational manny from [employer]. Thrive Questionnaire Date Thrive assessed: 01/29/23 I am a: Patient What is your living situation today?: I have a steady place to live Within the past 12 months, did the food you bought not last and you didn't have the money to get more?: Never true Within the past 12 months, did you worry whether your food would run out before you got money to buy more?: Never true Do you have trouble paying for medicines?: No Do you have trouble getting transportation to medical appointments?: No Do you have trouble paying your heating and electricity bill?: No Do you have trouble taking care of your child, family member or friend?: No Do you have trouble with day-to-day activities such as bathing, preparing meals, shopping, managing finances, etc.?: No Are you currently unemployed and looking for a job?: No Are you interested in more education?: No Please select the resources that you would like help with: None Currently or been in a relationship where the following occur: no concerns reported AUDIT C Alcohol Use Questionnaire (AUDIT-C) 1. How often do you have a drink containing alcohol?: Never 3. How often do you have six or more drinks on one occasion?: Never Total Score: 0 Score Reviewed/Action Taken: Yes CLARI-7 AMB Questionnaire CLARI-7 Date CLARI - 7 assessed: 01/29/23 Feeling nervous, anxious, or on edge: 0 = Not at all Not being able to stop or control worryin = Not at all Worrying too much about different things: 0 = Not at all Trouble relaxin = Not at all Being so restless that it is hard to sit still: 0 = Not at all Becoming easily annoyed or irritable: 0 = Not at all Feeling afraid as if something awful might happen: 0 = Not at all Total CLARI-7 score (0-4 normal; 5-9 mild; 10-14 moderate; 15-21 severe): 0 Source: Developed by Drs. Jimmy Guerra, Maulik Lucas and colleagues, with an educational manny from [employer]. Review of Systems Const Denies fatigue, Denies fever(s) and Denies headache(s) ENT Denies dysphagia, Denies dizziness, Denies headache(s), Denies neck pain, Denies odynophagia and Denies sore throat Card Denies chest pain, Denies rapid heart rate, Denies irregular heart rhythm, Denies palpitations and Reports dyspnea on exertion (mild) Resp Denies chest congestion, Denies cough, Reports dyspnea on exertion (mild) and Denies wheezing GI Denies abdominal pain, Denies constipation, Denies dysphagia, Denies heartburn, Denies diarrhea, Denies nausea, Denies odynophagia and Denies vomiting Denies difficulty urinating, Denies dysuria and Denies urinary frequency Musc Denies back pain, Denies arthralgias, Reports muscle cramps (while on Atorvastatin) and Denies neck pain Skin/Breast Denies rash Neuro Denies dizziness and Denies headache(s) Endo Denies fatigue and Denies palpitations Aller/Immun Denies wheezing Physical exam (Primary Care) Vital Signs: Last Vital Signs Pulse 65 01/29/23 14:16 BP 110/78 01/29/23 14:16 Pulse Ox 95 01/29/23 14:16 Oxygen Delivery Method Room Air 01/29/23 14:16 BMI result Body Mass Index 28.5 Tobacco/Smoking Status: Tobacco use Status Tobacco use date assessed 01/29/23 01/29/23 14:25 Patient Tobacco Use Status Former Tobacco user 01/29/23 14:25 e-Cigarette/Vaping Use Never Used 01/29/23 14:25 PHQ-9: PHQ-9 Score PHQ-9: Total score 0 01/29/23 15:06 Depression Screening Interpretation: Negative Thrive Assessment: Date of Thrive Assessment Date Thrive assessed 01/29/23 01/29/23 14:25 Currently or been in a relationship where the following occur: no concerns reported Const General: no acute distress and alert HENMT Ears: TM's normal bilaterally and EAC's normal Throat: Yes posterior oropharynx normal and Yes tonsils normal (no TP congestion noted) Neck Neck: Yes no lymphadenopathy and Yes supple Resp Auscultation: clear to auscultation bilaterally, no rales, no wheezes and diminished lung sounds (slightly ) bilateral Cardio Rate: regular rate Rhythm: regular rhythm Heart sounds: no murmurs GI Palpation (GI): Soft to palpation and nontender Auscultation: normal bowel sounds Back/Spine/Pelvis Thoracic/Lumbar Spine: lumbar spinal tenderness Extrem General: Yes no clubbing, cyanosis or edema Results Reviewed Results Reviewed: Laboratory Tests 01/28/23 12:12 WBC 6.0 Hgb 15.5 Hct 46.5 Plt Count 219 Sodium 144 Potassium 4.6 Creatinine 0.79 Estimated GFR > 60 Fasting Glucose 124 H Hemoglobin A1c % 6.1 H Calcium 9.1 D AST 28 ALT 25 Triglycerides 46 Cholesterol 192 LDL Cholesterol, Calc 134 H HDL Cholesterol 49 25-OH Vitamin D Total 78.1 Assessment and Plan Assessment & Plan (1) Pure hypercholesterolemia: Code(s): E78.00 - Pure hypercholesterolemia, unspecified Plan: Results of his labs done yesterday reviewed and discussed with patient - his total and LDL cholesterol levels have improved slightly from previous Reinforced low cholesterol diet States that he stopped taking his Atorvastatin 10 mg QD about 2 weeks ago (due to increasing diffuse muscle aches) but states that he did take it for at least 90 days until his Rx ran out Will have him STOP taking Atorvastatin and try him instead on Rosuvastatin 5 mg QD Will recheck his labs and fasting lipids in 4 to 5 months for follow up, when he returns from [place] in the spring (2) COPD (chronic obstructive pulmonary disease): Code(s): J44.9 - Chronic obstructive pulmonary disease, unspecified Qualifiers: COPD type: unspecified COPD Qualified Code(s): J44.9 - Chronic obstructive pulmonary disease, unspecified Plan: Stable with no recent exacerbations Repeat PFTs done a couple of years ago showed no significant changes or acute abnormalities; will consider rechecking PFTs next year for follow up Used to be on Spiriva Handihaler but insurance declined to continue covering Rx and was switched over to Incruse Ellipta but he admits that he has not been consistent in using his Incruse lately - is advised to start using it daily for it to work effectively Continue Incruse Ellipta 62.5 mcg 1 inhalation QD and Xopenex HFA 2 puffs every 6 hours only NEEDED (3) Impaired fasting glucose: Code(s): R73.01 - Impaired fasting glucose Plan: HgbA1c is at 6.1% on his labs done yesterday; was at 6.0% a few months ago Reinforced low calorie diet/exercise as tolerated/lose weight (4) Lumbar degenerative disc disease: Code(s): M51.36 - Other intervertebral disc degeneration, lumbar region Plan: Reinforced activity and weight-lifting restrictions to minimize aggravating his low back pain Continue Cyclobenzaprine 10 mg TID PRN; also has Tramadol 50 mg that he takes very sparingly and only when really needed for pain (5) Degenerative disc disease, cervical: Code(s): M50.30 - Other cervical disc degeneration, unspecified cervical region Plan: States that his neck symptoms remain mostly manageable (6) Primary osteoarthritis, right shoulder: Comment: S/P total right shoulder arthroplasty with Dr. Guadalupe Latham on 06/09/2018 Code(s): M19.011 - Primary osteoarthritis, right shoulder Plan: S/P total right shoulder arthroplasty with Dr. Guadalupe Latham on 06/09/2018 with significant improvement of his symptoms Follow up with orthopedics as scheduled (7) GERD (gastroesophageal reflux disease): Code(s): K21.9 - Gastro-esophageal reflux disease without esophagitis Qualifiers: Esophagitis presence: without esophagitis Qualified Code(s): K21.9 - Gastro-esophageal reflux disease without esophagitis Plan: Dietary restrictions reinforced Continue Pantoprazole 40 mg QD (8) Anxiety: Code(s): F41.9 - Anxiety disorder, unspecified Plan: Continue Lorazepam 0.5 mg QD PRN - Rx refilled (9) Overweight (BMI 25.0-29.9): Code(s): E66.3 - Overweight Plan: Reinforced diet/exercise as tolerated/lose weight Plan Follow up in 4 to 5 months (June 2023) when he returns here to the from [place] Orders: Orders Lipid Panel 06/11/23 E78.00 - Pure hypercholesterolemia, unspecified Comprehensive [place]. Panel Fast 06/11/23 E78.00 - Pure hypercholesterolemia, unspecified Hemoglobin A1c 06/11/23 R73.01 - Impaired fasting glucose CK, Total+Isoenzymes, Serum 06/11/23 M79.10 - Myalgia, unspecified site Complete Blood Count Auto Diff 06/11/23 I10 - Essential (primary) hypertension TSH reflex Free T4 06/11/23 E78.00 - Pure hypercholesterolemia, unspecified UA CC w/rflx Micro + Cult 06/11/23 R30.0 - Dysuria Vitamin D 25-OH Total 06/11/23 E55.9 - Vitamin D deficiency, unspecified Medications: New rosuvastatin 5 mg PO DAILY 90 tabs 3RF 90 days Refilled lorazepam 0.5 mg PO DAILY PRN 30 tabs 0RF anxiety 30 days Coding Level of Care Code Est Pt Level 4 (09456) Diagnoses Pure hypercholesterolemia E78.00 Chronic obstructive pulmonary disease, unspecified COPD type J44.9 COPD type: unspecified COPD Impaired fasting glucose R73.01 Lumbar degenerative disc disease M51.36 Degenerative disc disease, cervical M50.30 Primary osteoarthritis, right shoulder M19.011 Gastroesophageal reflux disease without esophagitis K21.9 Esophagitis presence: without esophagitis Anxiety F41.9 Overweight (BMI 25.0-29.9) E66.3
== END 2023-01-29 15:10 | disposition home or self-care (01) ==
PROVIDERS: PCP Internal Medicine; Visit Provider Internal Medicine
DX: E78.00 Pure hypercholesterolemia, unspecified (principal); J44.9 Chronic obstructive pulmonary disease, unspecified; R73.01 Impaired fasting glucose; M51.36 Other intervertebral disc degeneration, lumbar region; M50.30 Other cervical disc degeneration, unspecified cervical region; M19.011 Primary osteoarthritis, right shoulder; K21.9 Gastro-esophageal reflux disease without esophagitis; F41.9 Anxiety disorder, unspecified; E66.3 Overweight
CPT/HCPCS: 99214

== ENCOUNTER 2023-08-05 09:26 | Outpatient (REF) | payer MEDICARE, OTHER, SELFPAY ==
--- NOTE | ~2023-08-05 | XR_ITS ---
EXAMINATION: XR CHEST CLINICAL INFORMATION: Unspecified respiratory disorders, recurrent cough and shortness of breath, rule out pneumonia. COMPARISON: 11/26/2013. TECHNIQUE: 3 views of the chest. FINDINGS: The lungs are well-inflated. There is no gross pneumothorax. Heart size is normal. Redemonstration of partially imaged right shoulder prosthesis.. Mild degenerative changes in the thoracic spine. Increased opacities in the posterior lung bases may represent atelectasis/scar, but an infectious/inflammatory process should also be considered in the appropriate clinical setting. XR/XR chest 2V IMPRESSION: Increased opacities in the posterior lung bases may represent atelectasis/scar, an infectious/inflammatory process should also be considered in the appropriate clinical setting. This study was presented today August 06, 2023 for interpretation. Stat results provided at this time as requested by referring provider.
[2023-08-05 09:49] LABS: MANUAL DIFF FLAG NO
[2023-08-05 10:35] LABS: Basophils Absolute Auto 0.1 X10*3/uL (0.0-0.2); Basophils Percent Auto 2.5 % (0-2); Eosinophils Absolute Auto 0.5 X10*3/uL (0.0-0.4); Eosinophils Percent Auto 8.5 % (0-4); Hematocrit 44.3 % (42.0-52.0); Imm Gran Abs Auto 0.02 X10*3/uL (0.00-0.03); Imm Gran Pct Auto 0.4 % (0.0-0.4); Lymphocytes Absolute Auto 1.5 X10*3/uL (1.2-4.9); Lymphocytes Percent Auto 26.8 % (20-40); Mean Corpuscular HGB Conc 33.9 g/dl (31.0-36.0); Mean Corpuscular Volume 94.5 fL (80.0-98.0); Mean Platelet Volume 10.7 fL (9.4-12.4); Monocytes Absolute Auto 0.6 X10*3/uL (0.1-1.2); Monocytes Percent Auto 10.5 % (2-11); Neutrophils Absolute Auto 2.9 x10*3/uL (2.0-8.3); Neutrophils Percent Auto 51.3 % (45-73); Platelet Count 206 X10*3/uL (160-400); Red Blood Count 4.69 X10*6/uL (4.60-5.80); White Blood Count 5.6 X10*3/uL (4.8-10.8)
[2023-08-05 10:41] LABS: Appearance Urine Clear; Color Urine Yellow; Glucose Urine UA Negative (Negative); Leukocyte Esterase Urine Trace (Negative); Nitrite Urine Negative (Negative); PH 7.5 (5.0-9.0); UMIC TRIGGER UACC YES; Urine Blood Negative (Negative); Urine Ketones Negative (Negative); Urine Protein Negative (Neg-Trace)
[2023-08-05 10:45] LABS: Estimated Average Glucose 134 mg/dL; Hemoglobin A1c % 6.3 % (<6.0)
[2023-08-05 10:55] LABS: Bacteria Urine None Seen (None Seen); Hyaline Casts Urine 0-2 /LPF (0-2); RBC Urine 0-2 /HPF (0-2); Squamous Epithelial Cell Urine 0-2 /HPF (0-2); WBC Urine 0-5 /HPF (0-5)
[2023-08-05 11:34] LABS: Alanine Aminotransferase 24 U/L (0-40); Albumin Level 4.1 g/dL (3.5-5.0); Alkaline Phosphatase 51 U/L (39-117); Anion Gap 10 (12-20); Aspartate Amino Transferase 28 U/L (5-37); Bilirubin Total 0.4 mg/dL (0.0-1.0); Blood Urea Nitrogen 13 mg/dL (9-16); Calcium 9.3 mg/dL (8.4-10.2); Carbon Dioxide 30 mmol/L (22-29); Chloride 106 mmol/L (96-108); Cholesterol 119 mg/dL (<200); Estimated Glomerular Filt Rate > 60; Glucose Fasting 123 mg/dL (60-99); HDL Cholesterol 38 mg/dL (>40); LDL Cholesterol Calculated 73 mg/dL (<100); Potassium 4.5 mmol/L (3.3-5.1); Sodium 141 mmol/L (135-145); Total Protein 6.7 g/dL (6.5-8.0); Triglycerides 41 mg/dL (<150)
[2023-08-05 11:40] LABS: TSH reflex Free T4 1.05 uIU/mL (0.32-4.0)
[2023-08-08 23:47] LABS: CK-BB None Detected (None Detected); CK-MB 0 % (<5); CK-MM 95 % (95-100); Creatine Kinase,Total,Serum 168 U/L (44-196)
== END 2023-08-05 09:27 | disposition home or self-care (01) ==
LOC: HO.LAB 09:26
PROVIDERS: PCP Internal Medicine; Visit Provider Internal Medicine
DX: E78.00 Pure hypercholesterolemia, unspecified (principal); J98.8 Other specified respiratory disorders; I10 Essential (primary) hypertension; E55.9 Vitamin D deficiency, unspecified; R73.01 Impaired fasting glucose; M79.10 Myalgia, unspecified site
CPT/HCPCS: 36415; 71046; 80053; 80061; 81001; 82306; 82552; 83036; 84443; 85025

== ENCOUNTER 2023-08-05 13:31 | Outpatient (AMB) | payer MEDICARE, OTHER, SELFPAY ==
--- NOTE | 2023-08-05 10:23 | MHC.PC.OV ---
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 Allergies atorvastatin Adverse Reaction (Intermediate, Uncoded 08/05/23 14:09) myalgia Medication List - Last Reconciled 08/05/23 by Sunny Gallagher MD cyclobenzaprine 10 mg PO TID PRN levalbuterol tartrate 45 mcg/actuation (Xopenex HFA) 2 puffs inhalation Q4-6H PRN lorazepam 0.5 mg PO DAILY PRN 30 days meclizine 25 mg PO TID PRN pantoprazole 20 mg PO DAILY 90 days rosuvastatin 5 mg PO DAILY 90 days tadalafil 20 mg PO DAILY PRN tramadol 50 mg PO Q6-8H PRN umeclidinium 62.5 mcg/actuation (Incruse Ellipta) 1 inh inhalation DAILY 90 days Tobacco use date assessed: 08/05/23 Fall risk assessment: No Falls in past year Last assessed Fall Risk: 08/05/23 Dental Screening Dental Screen Date: 08/05/23 HPI cough , some lightheadedness and nausea HPI Details Patient comes in today for his follow up visit States that he caught a cold over 2 months ago - thinks it was on his return flight from [place] as he recalls that the person sitting behind him on the plane was coughing a lot States that he is presently still experiencing frequent chest congestion and occasional tightness as well as a recurrent cough with minimal whitish phlegm He also reports experiencing easy fatigability at times lately as well as recurrent YEUNG He denies any fever or chills; denies any headaches or dizziness Denies any chest pains No nausea/vomiting, no abdominal pain No change in bowel habits noted Adds that he's had a recurrent sensation of discomfort and pressure deep in the right side of his throat for a few weeks now - states that his throat is not sore and he's had no trouble swallowing Relates that his father had throat cancer and recalls being advised by his father a few years ago that drinking and smoking is a bad combination that can increase one's risk of throat and oral cancer States that he quit smoking a while back and has not really drank much anymore lately but he remains concerned about the possibility of throat cancer and would like to have his throat symptoms checked out further He had his follow up labs done earlier today - to discuss his results [facility] Medical History Left-sided chest pain Overweight (BMI 25.0-29.9) GERD (gastroesophageal reflux disease) Carpal tunnel syndrome of right wrist Lumbar degenerative disc disease Degenerative disc disease, cervical Primary osteoarthritis, right shoulder Impaired fasting glucose Pure hypercholesterolemia COPD (chronic obstructive pulmonary disease) Surgical History Status post colonoscopy (~12/13/13) History of arthroplasty of right shoulder History of carpal tunnel release Family History Father CVD (cardiovascular disease) Cancer Mother No problems noted. Social History Housing: House Alcohol intake: former Patient Tobacco Use Status: Former Tobacco user e-Cigarette/Vaping Use: Never Used Second Hand Smoke Exposure: Yes service: No Current occupational status: retired Cognitive needs: No Hearing needs: No Vision needs: Yes Questionnaire PHQ-9 Over the last 2 weeks, how often have you been bothered by any of the following problems? 1. Little interest or pleasure in doing things: not at all 2. Feeling down, depressed, or hopeless: not at all 3. Trouble falling or staying asleep, or sleeping too much: not at all 4. Feeling tired or having little energy: not at all 5. Poor appetite or overeating: not at all 6. Feeling bad about yourself - or that you are a failure or have let yourself or your family down: not at all 7. Trouble concentrating on things, such as reading the newspaper or watching television: not at all 8. Moving or speaking so slowly that other people could have noticed. Or the opposite - being so fidgety or restless that you have been moving around a lot more than usual: not at all 9. Thoughts that you would be better off or of hurting yourself in some way: not at all Total score: 0 Depression Screening Interpretation: Negative Depression Screening Done: Yes 62823 - PHQ-9 Billing: Yes Source: Developed by Drs. Jimmy Guerra, Lesyl Rivas, Maulik Herndon and colleagues, with an educational manny from [employer]. Thrive Questionnaire Date Thrive assessed: 08/05/23 I am a: Patient What is your living situation today?: I have a steady place to live Within the past 12 months, did the food you bought not last and you didn't have the money to get more?: Never true Within the past 12 months, did you worry whether your food would run out before you got money to buy more?: Never true Do you have trouble paying for medicines?: No Do you have trouble getting transportation to medical appointments?: No Do you have trouble paying your heating and electricity bill?: No Do you have trouble taking care of your child, family member or friend?: No Do you have trouble with day-to-day activities such as bathing, preparing meals, shopping, managing finances, etc.?: No Are you currently unemployed and looking for a job?: No Are you interested in more education?: No Please select the resources that you would like help with: None Currently or been in a relationship where the following occur: no concerns reported THRIVE Score: 0 AUDIT C Alcohol Use Questionnaire (AUDIT-C) 1. How often do you have a drink containing alcohol?: Never 3. How often do you have six or more drinks on one occasion?: Never Total Score: 0 Score Reviewed/Action Taken: Yes CLARI-7 AMB Questionnaire CLARI-7 Date CLARI - 7 assessed: 01/29/23 Source: Developed by Drs. Jimmy Guerra, Maulik Lucas and colleagues, with an educational manny from [employer]. Review of Systems Const Denies chills, Reports fatigue (increased lately), Denies fever(s), Denies headache(s) and Denies weight loss ENT Denies dysphagia, Denies dizziness, Denies otalgia, Denies headache(s), Denies neck mass, Denies neck pain, Denies odynophagia and Denies sore throat (but (+) recurrent deep right-sided throat discomfort - see HPI) Card Denies chest pain, Denies rapid heart rate, Denies irregular heart rhythm, Denies palpitations and Reports dyspnea on exertion (mild) Resp Reports chest congestion (on and off; chest feels tight at times), Reports cough (recurrent), Reports dyspnea on exertion (mild) and Denies wheezing GI Denies abdominal pain, Denies constipation, Denies dysphagia, Denies heartburn, Denies diarrhea, Denies nausea, Denies odynophagia and Denies vomiting Denies difficulty urinating, Denies dysuria, Denies urinary frequency and Denies urinary urgency Musc Denies back pain, Denies arthralgias, Denies muscle cramps and Denies neck pain Skin/Breast Denies rash Neuro Denies dizziness and Denies headache(s) Endo Reports fatigue (increased lately) and Denies palpitations Aller/Immun Denies wheezing Physical exam (Primary Care) Vital Signs: Last Vital Signs Pulse 70 08/05/23 13:37 BP 110/62 08/05/23 13:37 Pulse Ox 93 08/05/23 13:37 Oxygen Delivery Method Room Air 08/05/23 13:37 BMI result Body Mass Index 28.9 Tobacco/Smoking Status: Tobacco use Status Tobacco use date assessed 08/05/23 08/05/23 13:38 Patient Tobacco Use Status Former Tobacco user 08/05/23 10:23 e-Cigarette/Vaping Use Never Used 08/05/23 10:23 Depression Screening Interpretation: Negative Thrive Assessment: Date of Thrive Assessment Date Thrive assessed 01/29/23 08/05/23 10:23 Currently or been in a relationship where the following occur: no concerns reported Const General: no acute distress and alert HENMT Ears: TM's normal bilaterally and EAC's normal Throat: Yes posterior oropharynx normal and Yes tonsils normal (no TP congestion noted) Neck Neck: Yes no lymphadenopathy and Yes supple Thyroid: Thyroid normal Resp Auscultation: no rales, rhonchi (scattered) throughout, no wheezes and diminished lung sounds (slightly ) bilateral Cardio Rate: regular rate Rhythm: regular rhythm Heart sounds: no murmurs GI Palpation (GI): Soft to palpation and nontender Auscultation: normal bowel sounds General: Yes no CVA tenderness Back/Spine/Pelvis Back: no CVA tenderness Thoracic/Lumbar Spine: lumbar spinal tenderness Skin Rashes: no rashes Extrem General: Yes no clubbing, cyanosis or edema Results Reviewed Results Reviewed: Laboratory Tests 08/05/23 08/05/23 09:42 09:47 WBC 5.6 Hgb 15.0 Hct 44.3 Plt Count 206 Sodium 141 Potassium 4.5 Creatinine 0.80 Estimated GFR > 60 Fasting Glucose 123 H Hemoglobin A1c % 6.3 H Calcium 9.3 AST 28 ALT 24 Triglycerides 41 Cholesterol 119 LDL Cholesterol, Calc 73 HDL Cholesterol 38 L 25-OH Vitamin D Total 52.0 TSH 1.05 Ur Specific [place] 1.020 Urine Protein Negative Urine Glucose (UA) Negative Urine Blood Negative Urine Nitrite Negative Ur Leukocyte Esterase Trace H Assessment and Plan Assessment & Plan (1) Pure hypercholesterolemia: Code(s): E78.00 - Pure hypercholesterolemia, unspecified Plan: Results of his labs done earlier today reviewed and discussed with patient - his total and LDL cholesterol levels have again both improved significantly from previous Reinforced low cholesterol diet Continue Rosuvastatin 5 mg QD Will recheck his labs and fasting lipids in 4 months for follow up (2) COPD (chronic obstructive pulmonary disease): Code(s): J44.9 - Chronic obstructive pulmonary disease, unspecified Qualifiers: COPD type: unspecified COPD Qualified Code(s): J44.9 - Chronic obstructive pulmonary disease, unspecified Plan: Stable although he seems to be experiencing some exacerbation of his COPD recently Will send him for chest x-rays NAIMA for further evaluation and advised that we will check back with him if he needs any Abx Rx for his respiratory symptoms, depending on how his chest x-rays come out Continue Incruse Ellipta 62.5 mcg 1 inhalation QD and Xopenex HFA 2 puffs every 6 hours only NEEDED for now Repeat PFTs done a couple of years ago showed no significant changes or acute abnormalities (3) Impaired fasting glucose: Code(s): R73.01 - Impaired fasting glucose Plan: HgbA1c is at 6.3% on his labs done earlier today; was at 6.1% a few months ago Reinforced low calorie diet/exercise as tolerated/lose weight (4) Throat discomfort: Code(s): R07.0 - Pain in throat Plan: Have advised patient that his throat exam today appears to be normal but have also advised him that our throat exam is limited and we cannot visualize the deeper structures without the aid of a laryngoscope and that he can get this examined better if he goes to see ENT Per request, will refer him to ENT for further evaluation and management (5) Lumbar degenerative disc disease: Code(s): M51.36 - Other intervertebral disc degeneration, lumbar region Plan: Reinforced activity and weight-lifting restrictions to minimize aggravating his low back pain Continue Cyclobenzaprine 10 mg TID PRN; also has Tramadol 50 mg that he takes very sparingly and only when really needed for pain (6) Degenerative disc disease, cervical: Code(s): M50.30 - Other cervical disc degeneration, unspecified cervical region Plan: States that his neck symptoms remain mostly manageable (7) Primary osteoarthritis, right shoulder: Comment: S/P total right shoulder arthroplasty with Dr. Guadalupe Latham on 06/09/2018 Code(s): M19.011 - Primary osteoarthritis, right shoulder Plan: S/P total right shoulder arthroplasty with Dr. Guadalupe Latham on 06/09/2018 with significant improvement of his symptoms Follow up with orthopedics as scheduled (8) GERD (gastroesophageal reflux disease): Code(s): K21.9 - Gastro-esophageal reflux disease without esophagitis Qualifiers: Esophagitis presence: without esophagitis Qualified Code(s): K21.9 - Gastro-esophageal reflux disease without esophagitis Plan: Dietary restrictions reinforced Continue Pantoprazole 40 mg QD (9) Anxiety: Code(s): F41.9 - Anxiety disorder, unspecified Plan: Continue Lorazepam 0.5 mg QD PRN (10) Overweight (BMI 25.0-29.9): Code(s): E66.3 - Overweight Plan: Reinforced diet/exercise as tolerated/lose weight although he feels that his recent chest symptoms are limiting his ability to do these at the present time Plan Follow up in 4 months Orders: Orders XR chest 2V Today J98.8 - Other specified respiratory disorders Complete Blood Count Auto Diff 4 Months D64.9 - Anemia, unspecified Comprehensive [place]. Panel Fast 4 Months E78.00 - Pure hypercholesterolemia, unspecified UA CC w/rflx Micro + Cult 4 Months R30.0 - Dysuria Lipid Panel 4 Months E78.00 - Pure hypercholesterolemia, unspecified Hemoglobin A1c 4 Months R73.01 - Impaired fasting glucose Referrals Ear/Nose/Throat Referral R07.0 - Pain in throat Coding Level of Care Code Est Pt Level 4 (04188) Complex EM visit Add On G2211 Diagnoses Pure hypercholesterolemia E78.00 Chronic obstructive pulmonary disease, unspecified COPD type J44.9 COPD type: unspecified COPD Impaired fasting glucose R73.01 Throat discomfort R07.0 Lumbar degenerative disc disease M51.36 Degenerative disc disease, cervical M50.30 Primary osteoarthritis, right shoulder M19.011 Gastroesophageal reflux disease without esophagitis K21.9 Esophagitis presence: without esophagitis Anxiety F41.9 Overweight (BMI 25.0-29.9) E66.3
[2023-08-05 13:37] VITALS: BP 110/62; PULSE 70; O2SAT 93; BMI 28.9
== END 2023-08-05 14:26 | disposition home or self-care (01) ==
PROVIDERS: PCP Internal Medicine; Visit Provider Internal Medicine
DX: E78.00 Pure hypercholesterolemia, unspecified (principal); J44.9 Chronic obstructive pulmonary disease, unspecified; R73.01 Impaired fasting glucose; R07.0 Pain in throat; M51.36 Other intervertebral disc degeneration, lumbar region; M50.30 Other cervical disc degeneration, unspecified cervical region; M19.011 Primary osteoarthritis, right shoulder; K21.9 Gastro-esophageal reflux disease without esophagitis; F41.9 Anxiety disorder, unspecified; E66.3 Overweight
CPT/HCPCS: 99214; G2211

== ENCOUNTER 2023-11-28 12:26 | Outpatient (AMB) | payer MEDICARE, OTHER, SELFPAY ==
[2023-11-28 12:31] VITALS: BP 106/80; PULSE 75; O2SAT 96; BMI 28.3
--- NOTE | 2023-11-28 12:31 | A.OFFPC_ITS ---
Vital Signs 11/28/23 12:31 Height 6 ft 2 in Weight 220 lb 8 oz BMI 28.3 BP 106/80 Blood Pressure Location Lt brachial Position Sitting Pulse 75 Pulse Source Pulse Oximeter Pulse Oximetry (%) 96 Oxygen Delivery Method Room Air Intake Visit Reasons: COPD, hyperlipidemia Mine Utility Operator Required: No Accompanied by: Self / Same As Patient Allergies atorvastatin Adverse Reaction (Intermediate, Uncoded 11/28/23 12:52) myalgia Medication List - Last Reconciled 11/28/23 by Sunny Gallagher MD cyclobenzaprine 10 mg PO TID PRN levalbuterol tartrate 45 mcg/actuation (Xopenex HFA) 2 puffs inhalation Q4-6H PRN lorazepam 0.5 mg PO DAILY PRN 30 days meclizine 25 mg PO TID PRN pantoprazole 20 mg PO DAILY 90 days rosuvastatin 5 mg PO DAILY 90 days tadalafil 20 mg PO DAILY PRN tramadol 50 mg PO Q6-8H PRN umeclidinium 62.5 mcg/actuation (Incruse Ellipta) 1 inh inhalation DAILY 90 days Tobacco use date assessed: 11/28/23 Fall risk assessment: No Falls in past year Last assessed Fall Risk: 11/28/23 Dental Screening Dental Screen Date: 11/28/23 Did you have a dental visit in the last 12 months?: No Did you have a dental problem in the last 6 months where you did not have access to dental care?: No Was dental information given to patient?: No HPI COPD, hyperlipidemia HPI Details Patient comes in today for his follow up visit States that he feels okay He denies any headaches or dizziness Denies any chest pains, no increased SOB but relates that he still has a lingering recurrent cough that he's had for weeks now Thinks that he came down with a cold a while ago and it took him a long time (weeks) for his symptoms to finally clear up but his cough is still present - cough is mostly dry / non-productive Adds that his throat feels sore often -is not sure if this is from his recurrent cough or if it is related to his previous bout of respiratory infection He denies any fever No nausea/vomiting, no abdominal pain No change in bowel habits noted Needs his Pantoprazole and Rosuvastatin Rx refilled - states that his insurance would like them filled for a 90 days supply States that he just got back in town from [place] last night and was not able to get his follow up labs done yet States that he will be leaving for [place] again in early February 2024 and will be away for a while and would like to get a follow up appt in late January 2024 and would like to see if he can get his labs done for that appointment instead [facility] Medical History Left-sided chest pain Overweight (BMI 25.0-29.9) GERD (gastroesophageal reflux disease) Carpal tunnel syndrome of right wrist Lumbar degenerative disc disease Degenerative disc disease, cervical Primary osteoarthritis, right shoulder Impaired fasting glucose Pure hypercholesterolemia COPD (chronic obstructive pulmonary disease) Surgical History Status post colonoscopy (~12/13/13) History of arthroplasty of right shoulder History of carpal tunnel release Family History Father CVD (cardiovascular disease) Cancer Mother No problems noted. Social History Housing: House Alcohol intake: former Patient Tobacco Use Status: Former Tobacco user e-Cigarette/Vaping Use: Never Used Second Hand Smoke Exposure: Yes service: No Current occupational status: retired Cognitive needs: No Hearing needs: No Vision needs: Yes Questionnaire PHQ-9 Over the last 2 weeks, how often have you been bothered by any of the following problems? 1. Little interest or pleasure in doing things: not at all 2. Feeling down, depressed, or hopeless: not at all 3. Trouble falling or staying asleep, or sleeping too much: not at all 4. Feeling tired or having little energy: not at all 5. Poor appetite or overeating: not at all 6. Feeling bad about yourself - or that you are a failure or have let yourself or your family down: not at all 7. Trouble concentrating on things, such as reading the newspaper or watching television: not at all 8. Moving or speaking so slowly that other people could have noticed. Or the opposite - being so fidgety or restless that you have been moving around a lot more than usual: not at all 9. Thoughts that you would be better off or of hurting yourself in some way: not at all Total score: 0 Depression Screening Interpretation: Negative Depression Screening Done: Yes 11704 - PHQ-9 Billing: Yes Source: Developed by Drs. Jimmy Guerra, Lesly Rivas, Maulik Herndon and colleagues, with an educational manny from [employer]. Thrive Questionnaire Date Thrive assessed: 11/28/23 I am a: Patient What is your living situation today?: I have a steady place to live Within the past 12 months, did the food you bought not last and you didn't have the money to get more?: Never true Within the past 12 months, did you worry whether your food would run out before you got money to buy more?: Never true Do you have trouble paying for medicines?: No Do you have trouble getting transportation to medical appointments?: No Do you have trouble paying your heating and electricity bill?: No Do you have trouble taking care of your child, family member or friend?: No Do you have trouble with day-to-day activities such as bathing, preparing meals, shopping, managing finances, etc.?: No Are you currently unemployed and looking for a job?: No Are you interested in more education?: No Please select the resources that you would like help with: None Currently or been in a relationship where the following occur: No concerns reported THRIVE Score: 0 AUDIT C Alcohol Use Questionnaire (AUDIT-C) 1. How often do you have a drink containing alcohol?: Never 3. How often do you have six or more drinks on one occasion?: Never Total Score: 0 Score Reviewed/Action Taken: Yes CLARI-7 AMB Questionnaire CLARI-7 Date CLARI - 7 assessed: 11/28/23 Feeling nervous, anxious, or on edge: 0 = Not at all Not being able to stop or control worryin = Not at all Worrying too much about different things: 0 = Not at all Trouble relaxin = Not at all Being so restless that it is hard to sit still: 0 = Not at all Becoming easily annoyed or irritable: 0 = Not at all Feeling afraid as if something awful might happen: 0 = Not at all Total CLARI-7 score (0-4 normal; 5-9 mild; 10-14 moderate; 15-21 severe): 0 Source: Developed by Drs. Jimmy Guerra, Lesly Rivas, Maulik Herndon and colleagues, with an educational manny from [employer]. Review of Systems Const Denies chills, Denies fatigue, Denies fever(s), Denies headache(s) and Denies weight loss ENT Denies dysphagia, Denies dizziness, Denies otalgia, Denies headache(s), Denies neck mass, Denies neck pain, Denies odynophagia and Reports sore throat (recurrent) Card Denies chest pain, Denies rapid heart rate, Denies irregular heart rhythm, Denies palpitations and Reports dyspnea on exertion (mild) Resp Denies chest congestion, Reports cough (recurrent; non-productive), Reports dyspnea on exertion (mild) and Denies wheezing GI Denies abdominal pain, Denies constipation, Denies dysphagia, Denies heartburn, Denies diarrhea, Denies nausea, Denies odynophagia and Denies vomiting Denies difficulty urinating, Denies dysuria, Denies urinary frequency and Denies urinary urgency Musc Denies back pain, Denies arthralgias, Denies muscle cramps and Denies neck pain Skin/Breast Denies rash Neuro Denies dizziness and Denies headache(s) Endo Denies fatigue and Denies palpitations Aller/Immun Denies wheezing Physical exam (Primary Care) Vital Signs: Last Vital Signs Pulse 75 11/28/23 12:31 BP 106/80 11/28/23 12:31 Pulse Ox 96 11/28/23 12:31 Oxygen Delivery Method Room Air 11/28/23 12:31 BMI result Body Mass Index 28.3 Tobacco/Smoking Status: Tobacco use Status Tobacco use date assessed 11/28/23 11/28/23 12:35 Patient Tobacco Use Status Former Tobacco user 11/28/23 12:35 e-Cigarette/Vaping Use Never Used 11/28/23 12:35 PHQ-9: PHQ-9 Score PHQ-9: Total score 0 11/28/23 13:09 Depression Screening Interpretation: Negative Thrive Assessment: Date of Thrive Assessment Date Thrive assessed 11/28/23 11/28/23 12:35 Currently or been in a relationship where the following occur: No concerns rep orted Const General: no acute distress and alert HENMT Ears: TM's normal bilaterally and EAC's normal Throat: Yes posterior oropharynx normal and Yes tonsils normal (no TP congestion noted) Neck Neck: Yes no lymphadenopathy and Yes supple Thyroid: Thyroid normal Resp Auscultation: no rales, rhonchi (scattered) throughout, no wheezes and diminished lung sounds (slightly ) bilateral Cardio Rate: regular rate Rhythm: regular rhythm Heart sounds: no murmurs GI Palpation (GI): Soft to palpation and nontender Auscultation: normal bowel sounds General: Yes no CVA tenderness Back/Spine/Pelvis Back: no CVA tenderness Thoracic/Lumbar Spine: lumbar spinal tenderness Skin Rashes: no rashes Extrem General: Yes no clubbing, cyanosis or edema Office Procedures Flu Questionnaire Does the patient have a severe egg allergy?: No Results AMB Hemoglobin A1c AMB Hemoglobin A1c 6.7 % Last Edit by MARIA L Lima on 11/28/23 13 :10 Immunizations Fluarix Triv [id number] (PF) 45 mcg (15 mcg x 3)/0.5 mL IM syringe Performing Provider: Sunny Gallagher MD [facility] Documented (not given) by: MARIA L Lima on 11/28/23 13:01 Reason Not Given: Patient Refused Results Reviewed Results Reviewed: Laboratory Last Values Hgb A1c (Clinic) 6.7 % (4.0-6.0) H 11/28/23 13:09 Coding Level of Care Code Est Pt Level 4 (70217) Complex EM visit Add On G2211 Diagnoses Chronic sore throat J31.2 COPD exacerbation J44.1 Gastroesophageal reflux disease without esophagitis K21.9 Esophagitis presence: without esophagitis Pure hypercholesterolemia E78.00 Impaired fasting glucose R73.01 Degeneration of intervertebral disc of lumbar region with discogenic back pain M51.360 Disc-related pain type: discogenic back pain only Degenerative disc disease, cervical M50.30 Primary osteoarthritis, right shoulder M19.011 Anxiety F41.9 Overweight (BMI 25.0-29.9) E66.3 Assessment & Plan Assessment & Plan (1) Chronic sore throat: Code(s): J31.2 - Chronic pharyngitis Category: Medical Plan: He was previously referred to ENT for further evaluation of his recurrent sore throat/throat pain but states that he was never contacted by ENT to schedule him for an appointment Have discussed with patient that his recurrent sore throat may be likely due to GERD/acid reflux or may be due to his recurrent coughing but may also be related to his smoking For now, will send him for an upper GI series for further evaluation to see if he has any significant degree of reflux that could be causing his symptoms Will revisit ENT referral again if his upper GI series is unrevealing (2) COPD exacerbation: Code(s): J44.1 - Chronic obstructive pulmonary disease with (acute) exacerbation Category: Medical Plan: Will start patient empirically on Doxycycline 100 mg BID x 7 days Continue Incruse Ellipta 62.5 mcg 1 inhalation QD and Xopenex HFA 2 puffs every 6 hours only NEEDED His chest x-rays done back in July 2023 revealed (+) increased opacities in the posterior lung bases, which may represent atelectasis/scar, but an infectious/inflammatory process should also be considered in the appropriate clinical setting If his cough does not improve with empiric Doxycycline Tx, will send him for repeat chest x-rays for further evaluation (3) GERD (gastroesophageal reflux disease): Code(s): K21.9 - Gastro-esophageal reflux disease without esophagitis Category: Medical Qualifiers: Esophagitis presence: without esophagitis Qualified Code(s): K21.9 - Gastro-esophageal reflux disease without esophagitis Plan: Dietary restrictions reinforced Continue Pantoprazole 40 mg QD - Rx refilled (4) Pure hypercholesterolemia: Code(s): E78.00 - Pure hypercholesterolemia, unspecified Category: Medical Plan: Patient was not able to get his follow up labs done prior to his visit today - will just have him get these done when he returns in a couple of months for his next follow up appointment Reinforced low cholesterol diet Continue Rosuvastatin 5 mg QD - states that he has been tolerating this without any problems so far (he could not tolerate Atorvastatin due to increased myalgia) (5) Impaired fasting glucose: Code(s): R73.01 - Impaired fasting glucose Category: Medical Plan: His in-office HgbA1c today is at 6.7%; his HgbA1c was at 6.3% back in July 2023 and at 6.1% a few months prior to that - have cautioned him that this means that his blood sugar has gone up consistently this past year and at 6.7%, he is strictly speaking considered a diabetic now Reinforced low calorie/low carb diet; exercise as tolerated - is advised that if he cannot get his HgbA1c back down over the next couple of months, he will likely need to be started on some Rx for his blood sugar as well (6) Lumbar degenerative disc disease: Code(s): M51.36 - Other intervertebral disc degeneration, lumbar region Category: Medical Qualifiers: Disc-related pain type: discogenic back pain only Qualified Code(s): M51.360 - Other intervertebral disc degeneration, lumbar region with discogenic back pain only Plan: Reinforced activity and weight-lifting restrictions to minimize aggravating his low back pain Continue Cyclobenzaprine 10 mg TID PRN; also has Tramadol 50 mg that he takes very sparingly and only when really needed for pain (7) Degenerative disc disease, cervical: Code(s): M50.30 - Other cervical disc degeneration, unspecified cervical region Category: Medical Plan: Patient states that his neck symptoms remain mostly manageable (8) Primary osteoarthritis, right shoulder: Comment: S/P total right shoulder arthroplasty with Dr. Guadalupe Latham on 06/09/2018 Code(s): M19.011 - Primary osteoarthritis, right shoulder Category: Medical Plan: S/P total right shoulder arthroplasty with Dr. Guadalupe Latham a few years ago on 06/09/2018 with (+) significant improvement of his shoulder symptoms Follow up with orthopedics as scheduled (9) Anxiety: Code(s): F41.9 - Anxiety disorder, unspecified Category: Medical Plan: Continue Lorazepam 0.5 mg QD PRN (10) Overweight (BMI 25.0-29.9): Code(s): E66.3 - Overweight Category: Medical Plan: Reinforced diet/exercise as tolerated/lose weight Plan Follow up in 2 months Orders: Orders Vitamin D 25-OH Total 01/31/24 E55.9 - Vitamin D deficiency, unspecified Influenza [id number] Immunization 11/28/23 Z23 - Encounter for immunization [place] upper GI series 11/28/23 J31.2 - Chronic pharyngitis, K21.9 - Gastro- esophageal reflux disease without esophagitis, R05.8 - Other specified cough AMB Hemoglobin A1c 11/28/23 Z13.9 - Encounter for screening, unspecified Medications: New doxycycline hyclate 100 mg PO BID 7 days 14 caps 0RF Refilled rosuvastatin 5 mg PO DAILY 90 days 90 tabs 3RF pantoprazole 20 mg PO DAILY 90 days 90 tabs 3RF
== END 2023-11-28 13:09 | disposition home or self-care (01) ==
PROVIDERS: PCP Internal Medicine; Visit Provider Internal Medicine
DX: J31.2 Chronic pharyngitis (principal); J44.1 Chronic obstructive pulmonary disease with (acute) exacerbation; K21.9 Gastro-esophageal reflux disease without esophagitis; E78.00 Pure hypercholesterolemia, unspecified; R73.01 Impaired fasting glucose; M51.360 Other intervertebral disc degeneration, lumbar region with discogenic back pain only; M50.30 Other cervical disc degeneration, unspecified cervical region; M19.011 Primary osteoarthritis, right shoulder; F41.9 Anxiety disorder, unspecified; E66.3 Overweight

== ENCOUNTER → 2023-11-28 12:26 | Outpatient (BNVA) | payer MEDICARE, OTHER, SELFPAY | PROVIDERS: PCP Internal Medicine; Visit Provider Internal Medicine | DX: J31.2 Chronic pharyngitis (principal); J44.1 Chronic obstructive pulmonary disease with (acute) exacerbation; K21.9 Gastro-esophageal reflux disease without esophagitis; E78.00 Pure hypercholesterolemia, unspecified; R73.01 Impaired fasting glucose; M51.360 Other intervertebral disc degeneration, lumbar region with discogenic back pain only; M50.30 Other cervical disc degeneration, unspecified cervical region; M19.011 Primary osteoarthritis, right shoulder; F41.9 Anxiety disorder, unspecified; E66.3 Overweight; Z79.899 Other long term (current) drug therapy; Z28.21 Immunization not carried out because of patient refusal | CPT/HCPCS: 83036; 90471; 96127; 99212 ==

== ENCOUNTER 2024-06-14 09:40 | Outpatient (REF) | payer MEDICARE, OTHER, SELFPAY ==
[2024-06-14 10:12] LABS: MANUAL DIFF FLAG NO
[2024-06-14 10:32] LABS: Basophils Absolute Auto 0.1 X10*3/uL (0.0-0.2); Basophils Percent Auto 1.6 % (0-2); Eosinophils Absolute Auto 0.5 X10*3/uL (0.0-0.4); Estimated Average Glucose 137 mg/dL; Hemoglobin 15.8 g/dl (14.0-18.0); Hemoglobin A1C 190.1164 umol/L; Hemoglobin A1c % 6.4 % (<6.0); Imm Gran Abs Auto 0.04 X10*3/uL (0.00-0.03); Imm Gran Pct Auto 0.6 % (0.0-0.4); Lymphocytes Absolute Auto 1.3 X10*3/uL (1.2-4.9); Lymphocytes Percent Auto 19.3 % (20-40); Mean Corpuscular HGB Conc 33.6 g/dl (31.0-36.0); Mean Corpuscular Hemoglobin 31.5 pg (27.0-33.0); Mean Corpuscular Volume 93.8 fL (80.0-98.0); Mean Platelet Volume 10.2 fL (9.4-12.4); Monocytes Absolute Auto 0.6 X10*3/uL (0.1-1.2); Monocytes Percent Auto 8.2 % (2-11); Neutrophils Absolute Auto 4.2 x10*3/uL (2.0-8.3); Neutrophils Percent Auto 63.3 % (45-73); Platelet Count 220 X10*3/uL (160-400); Red Blood Count 5.01 X10*6/uL (4.60-5.80); Red Cell Distribution Width 13.1 % (11.0-16.0); Total Hemoglobin (HGBA1C) 4107.2989 umol/L; White Blood Count 6.7 X10*3/uL (4.8-10.8)
--- OUTSIDE RECORDS SUMMARY | 2024-06-14 10:34 | XMS_ITS | Patient Health Record ---
Author Organization [facility] Address [address] [place] [address] Support Name Relationship Address Phone VIPUL FELIX Emergency Contact [address] [place], [place] [phone] JOSE EDUARDO BAH Guarantor Unknown [phone] Reason For Referral No Information Plan Of Treatment No Information Insurance Providers Payer Name Payer Address Payer Phone Subscriber Number Group Number Insured Name Patient Relationship to Insured Coverage Start Date Coverage End Date [employer] [place] - J13 [address] [place] [address] [id number] JOSE EDUARDO GROVES Self - patient is the insured [facility] [address] [place] [address] [id number] JOSE EDUARDO GROVES Self - patient is the insured
--- OUTSIDE RECORDS SUMMARY | 2024-06-14 10:34 | XMS_ITS | Data Portability ---
Author Organization [place] [facility] Address [address] [place] [id number] Care Team Providers Care Awning Craftsperson Name Role Phone SID GUZMÁN Referring Provider Assessment Encounter Date Assessment Date Assessment LastModified by Organization Details LastModified Time 04/15/2024 04/15/2024 Patient describe s intermittent sensation of object in his throat that can trigger a cough on the right side. Fiberoptic laryngoscopy was benign with no lesions present. Reassurance was given. He will likely continue to pursue barium swallow, esophagram from his primary care. Discussed the differential diagnosis of irritation from reflux, previous viral injury resulting in some neuropathy, neuralgia, scratch or local trauma from food, hypersensitive larynx. Malignancy is felt to be significantly less likely with his benign exam dplosky Not available 04/15/2024 09:59:07 Plan of Treatment Reminders Order Date Submit Date Provider Last Modified By Organization Details Last Modified Time Details Appointments None record ed. Lab None record ed. Referral None record ed. Procedures None record ed. Surgeries None record ed. Imaging None record ed. Medication Orders None record ed. Patient TargetsNo targets recorded. Patient InstructionsNo instructions recorded. Reason for Referral None Reported. Problems Name Problem SNOMED Code Status Onset Date Resolution Date Notes Provider Name and Address Organization Details Recorded Time Feeling of lump in throat 271153609 Active 025 LORRAINE ZUNIGA MD [address] [place] [address], [facility] [place], [address] , [place] - [facility] 09:58:00 Problem Notes None recorded. Procedures Surgical History Date Name Laterality Status Provider Name and Address Organization Details Recorded Time 04/15/2024 FOL_DP completed LORRAINE ZUNIGA MD [address] [place] [address], [id number], [place] - [facility] 04/14/2024 17:24:59 Imaging Results None recorded. Procedure Notes None recorded. Medical Equipment None Reported. Medications Name Sig Start Date Stop Date Status Note LastModified by Organization Details LastModified Time prednisone 10 mg tablet TAKE 4 TABLETS DAILY FOR 3 DAYS THEN TAKE 3 TABLETS DAILY FOR 3 DAYS THEN TAKE 2 TABLETS DAILY FOR 2 DAYS, THEN TAKE 1 TABLET DAILY FOR 2 D active Not Available Not Available No t Available doxycycline hyclate 100 mg capsule TAKE ONE CAPSULE BY MOUTH TWICE A DAY active Not Available Not Available No t Available betamethason e, augmented 0.05 % topical cream APPLY ONTO THE SKIN TWICE DAILY THEN NEEDED active Not Available Not Available No t Available triamcinolon e acetonide 0.1 % topical cream APPLY A THIN LAYER TO THE AFFECTED AREA S)TOPICALLY TWICE A DAY FOR 7 DAYS active Not Available Not Available N ot Available amoxicillin 500 mg tablet TAKE 4 TABLETS 1 HOUR PRIOR TO ALL DENTAL APPOINTMENT S active Not Available Not Available No t Available pantoprazole 20 mg tablet,delay ed release TAKE ONE TABLET BY MOUTH EVERY DAY active Not Available Not Available No t Available rosuvastatin 5 mg tablet TAKE ONE TABLET BY MOUTH EVERY DAY active Not Available Not Available No t Available rosuvastatin 40 mg tablet 5 mg every 24 hours by oral route. 2023 active Not Available Not Available Not Avai lable tadalafil 20 mg tablet TAKE ONE TABLET BY MOUTH EVERY DAY NEEDED FOR SEXUAL ACTIVITY active Not Available Not Available No t Available Incruse Ellipta 62.5 mcg/actuatio n powder for inhalation INHALE 1 PUFF INTO THE LUNGS ONCE DAILY active Not Available Not Available N ot Available Vitals Date Recorded Body height Body mass index (BMI) Body weight Provider Name and Address Organization Details Last Updated DateTime 04/15/2024 187.96 cm 28.2 kg/m2 43387.32 g Basia Mauricio [place] - [facility] 04/15/2024 09:37:11 Social History None recorded. Functional Status None recorded. Mental Status None recorded. Family History Nothing Reported. Medical History Condition Response Arthritis Y COPD Y GERD/Reflux Y Past Encounters Encounter ID Performer Location Encounter Start Date Encounter Closed Date Diagnosis/Indication Diagnosis SNOMED-CT Code Diagnosis ICD10 Code Diagnosis Note [id number] LORRAINE ZUNIGA MD [facility] [address] [place] [address] 04/15/2024 09:26:38 04/15/2024 11:44:48 Feeling of lump in throat [id number] R09.89 Health Concerns Section Related Observation LastModified by Organization Detai ls LastModified Time None Recorded Concern Status LastModified by Organization Details LastModified Time None Recorded Advance Directives Directive None Recorded Payers Encounter Date Sequence Insurance Name Policy Number Policy Manning Covered Member ID Manning Member ID Guarantor Name 04/15/2024 1 [place] B-[place]: [facility] Francesco Clavert [id number] Francesco Calvert 04/15/2024 2 [facility] [id number] Alivia Falk Nehal [id number] Francesco Calvert Notes Date Note Type Note Provider Name and Address Organization Details Recorded Time 04/15/2024 text/html recurring right throat painfeels a tickle that can trigger a cough lasting 5 minonset 1 year ago, lately more mildswallow study was requested but he did not get itno dysphagia for liquid or solidfeels mucus in esophagus, +GERD on pantoprazoletob+ 45 pack yr hx, stopped 2010alcohol + stopped 199508/05[place], atelectasis versus inflammatory process spends winter in [place] x 4 months, just came back yesterdayfather had throat cancer LORRAINE ZUNIGA MD [address] [facility] [address], [place], [phone], [facility] - [facility] 04/15/2024 09:59:27
[2024-06-14 11:29] LABS: Alanine Aminotransferase 35 U/L (0-40); Albumin Level 4.3 g/dL (3.5-5.0); Alkaline Phosphatase 46 U/L (39-117); Anion Gap 12 (12-20); Aspartate Amino Transferase 39 U/L (5-37); Bilirubin Total 0.5 mg/dL (0.0-1.0); Blood Urea Nitrogen 15 mg/dL (9-16); Calcium 9.4 mg/dL (8.4-10.2); Carbon Dioxide 30 mmol/L (22-29); Chloride 103 mmol/L (96-108); Cholesterol 139 mg/dL (<200); Estimated Glomerular Filt Rate > 60; Glucose Fasting 144 mg/dL (60-99); Potassium 4.6 mmol/L (3.3-5.1); Sodium 140 mmol/L (135-145); Total Protein 6.8 g/dL (6.5-8.0); Triglycerides 50 mg/dL (<150); Vitamin D 25-OH Total 73.6 ng/mL (>30)
[2024-06-14 11:48] LABS: HDL Cholesterol 43 mg/dL (>40); LDL Cholesterol Calculated 86 mg/dL (<100)
[2024-06-14 12:43] LABS: Appearance Urine Clear; Color Urine Yellow; Glucose Urine UA Negative (Negative); Leukocyte Esterase Urine Negative (Negative); Nitrite Urine Negative (Negative); PH 5.5 (5.0-9.0); Specific Gravity - Urine 1.025 (1.005-1.025); Urine Blood Negative (Negative); Urine Ketones Trace mg/dL (Negative); Urine Protein Negative (Neg-Trace)
== END 2024-06-14 09:41 | disposition home or self-care (01) ==
LOC: HO.LAB 09:40
PROVIDERS: PCP Internal Medicine; Visit Provider Internal Medicine
DX: D64.9 Anemia, unspecified (principal); E78.00 Pure hypercholesterolemia, unspecified; R30.0 Dysuria; R73.01 Impaired fasting glucose; E55.9 Vitamin D deficiency, unspecified
CPT/HCPCS: 36415; 80053; 80061; 81003; 82306; 83036; 85025

== ENCOUNTER 2024-06-24 11:31 | Outpatient (AMB) | payer MEDICARE, OTHER, SELFPAY ==
[2024-06-24 11:35] VITALS: BP 122/60; PULSE 47; RESP 20; TEMP 36.6; O2SAT 95; BMI 29.0
--- NOTE | 2024-06-24 11:35 | A.OFFPC_ITS ---
Vital Signs 06/24/24 11:35 Height 6 ft 2 in Weight 226 lb 3.2 oz BMI 29.0 BP 122/60 Blood Pressure Location Lt brachial Position Sitting Respiration 20 Pulse 47 L Pulse Source Pulse Oximeter Temp 97.9 F Temp Source Oral Pulse Oximetry (%) 95 Oxygen Delivery Method Room Air Intake Visit Reasons: COPD, GERD, Hyperlipidemia Antique Clocks Repairer Required: No Accompanied by: Self / Same As Patient Allergies atorvastatin Adverse Reaction (Intermediate, Uncoded 06/30/24 08:14) myalgia Medication List - Last Reconciled 06/30/24 by DRAKE Chisholm cyclobenzaprine 10 mg PO TID PRN levalbuterol tartrate 45 mcg/actuation (Xopenex HFA) 2 puffs inhalation Q4-6H PRN lorazepam 0.5 mg PO DAILY PRN 30 days meclizine 25 mg PO TID PRN pantoprazole (Protonix) 40 mg PO DAILY rosuvastatin 5 mg PO DAILY 90 days tadalafil 20 mg PO DAILY PRN tramadol 50 mg PO Q6-8H PRN umeclidinium 62.5 mcg/actuation (Incruse Ellipta) 1 inh inhalation DAILY 90 days Tobacco use date assessed: 06/24/24 Fall risk assessment: No Falls in past year Last assessed Fall Risk: 06/24/24 Dental Screening Dental Screen Date: 06/24/24 Did you have a dental visit in the last 12 months?: Yes Did you have a dental problem in the last 6 months where you did not have access to dental care?: No Was dental information given to patient?: Patient has dentist HPI COPD, GERD, Hyperlipidemia HPI Details The patient is a 73-year-old male presenting with management concerns regarding his chronic medical conditions including Type 2 Diabetes Mellitus, Hyperlipidemia, Hypertension, a chronic cough post-Pfizer vaccination, and exacerbated symptoms of acid reflux. The A1c level has been stable, currently at 6.4%, indicating effective glycemic control. Hyperlipidemia management with rosuvastatin is monitored closely due to slightly elevated liver enzyme and fluctuating LDL levels. Concurrently, the patient reports a persistent chronic cough after receiving the Pfizer COVID-19 vaccine, with extended periods for symptom resolution compared to pre-vaccination episodes. The patient's acid reflux symptoms have intensified and further evaluation and modification of current Pantoprazole (increased to 40mg). The patient has a pertinent family history of throat cancer and personal history of tobacco use, now abstinent for over a decade. Insomnia remains a challenging condition, intermittently managed by lorazepam. [facility] Medical History Left-sided chest pain Overweight (BMI 25.0-29.9) GERD (gastroesophageal reflux disease) Carpal tunnel syndrome of right wrist Lumbar degenerative disc disease Degenerative disc disease, cervical Primary osteoarthritis, right shoulder Impaired fasting glucose Pure hypercholesterolemia COPD (chronic obstructive pulmonary disease) Surgical History Status post colonoscopy (~12/13/13) History of arthroplasty of right shoulder History of carpal tunnel release Family History Father CVD (cardiovascular disease) Cancer Mother No problems noted. Social History Housing: House Alcohol intake: former Patient Tobacco Use Status: Former Tobacco user e-Cigarette/Vaping Use: Never Used Second Hand Smoke Exposure: Yes service: No Current occupational status: retired Cognitive needs: No Hearing needs: No Vision needs: Yes Questionnaire PHQ-9 Over the last 2 weeks, how often have you been bothered by any of the following problems? 1. Little interest or pleasure in doing things: not at all 2. Feeling down, depressed, or hopeless: not at all 3. Trouble falling or staying asleep, or sleeping too much: several days 4. Feeling tired or having little energy: several days 5. Poor appetite or overeating: several days 6. Feeling bad about yourself - or that you are a failure or have let yourself or your family down: not at all 7. Trouble concentrating on things, such as reading the newspaper or watching television: not at all 8. Moving or speaking so slowly that other people could have noticed. Or the opposite - being so fidgety or restless that you have been moving around a lot more than usual: not at all 9. Thoughts that you would be better off or of hurting yourself in some way: not at all Total score: 3 Depression Screening Interpretation: Negative Depression Screening Done: Yes 61119 - PHQ-9 Billing: Yes Source: Developed by Drs. Jimmy Guerra, Lesly iRvas, Maulik Herndon and colleagues, with an educational manny from [employer]. Thrive Questionnaire Date Thrive assessed: 06/24/24 I am a: Patient What is your living situation today?: I have a steady place to live Within the past 12 months, did the food you bought not last and you didn't have the money to get more?: Never true Within the past 12 months, did you worry whether your food would run out before you got money to buy more?: Never true Do you have trouble paying for medicines?: No Do you have trouble getting transportation to medical appointments?: No Do you have trouble paying your heating and electricity bill?: No Do you have trouble taking care of your child, family member or friend?: No Do you have trouble with day-to-day activities such as bathing, preparing meals, shopping, managing finances, etc.?: No Are you currently unemployed and looking for a job?: No Are you interested in more education?: No Please select the resources that you would like help with: None Currently or been in a relationship where the following occur: No concerns reported THRIVE Score: 0 AUDIT C Alcohol Use Questionnaire (AUDIT-C) 1. How often do you have a drink containing alcohol?: Never Total Score: 0 Score Reviewed/Action Taken: No CLARI-7 AMB Questionnaire CLARI-7 Date CLARI - 7 assessed: 06/24/24 Feeling nervous, anxious, or on edge: 0 = Not at all Not being able to stop or control worryin = Not at all Worrying too much about different things: 0 = Not at all Trouble relaxin = Not at all Being so restless that it is hard to sit still: 0 = Not at all Becoming easily annoyed or irritable: 0 = Not at all Feeling afraid as if something awful might happen: 0 = Not at all Total CLARI-7 score (0-4 normal; 5-9 mild; 10-14 moderate; 15-21 severe): 0 Source: Developed by Drs. Jimmy Guerra, Lesly Rivas, Maulik Herndon and colleagues, with an educational manny from [employer]. CLARI-7 Assessment Billing CLARI-7 Assessment Tool: CLARI-7 Assessment 67521 Review of Systems Const Denies headache(s) Eyes Denies loss of vision ENT Denies vertigo, Denies dizziness, Denies headache(s) and Denies sore throat Card Denies chest pain, Denies leg edema and Denies lightheadedness Resp Reports cough, Denies hemoptysis and Denies wheezing GI Denies abdominal pain, Denies melena, Denies constipation, Reports heartburn, Denies diarrhea and Denies vomiting Denies dysuria, Denies urinary frequency and Denies urinary urgency Musc Denies arthralgias, Denies joint swelling, Denies numbness and Denies tingling Neuro Denies Abnormal speech present, Denies behavioral changes, Denies vertigo, Denies dizziness, Denies headache(s), Denies loss of vision, Denies memory loss, Denies numbness and Denies tingling Psych Denies anxiety, Denies behavioral changes, Denies depression, Denies memory l oss, Denies panic attacks and Reports other (insomnia) Venkat/Lymph Denies easy bleeding and Denies easy bruising Aller/Immun Denies wheezing Physical exam (Primary Care) Vital Signs: Last Vital Signs Temp 97.9 F 06/24/24 11:35 Pulse 47 L 06/24/24 11:35 Resp 20 06/24/24 11:35 BP 122/60 06/24/24 11:35 Pulse Ox 95 06/24/24 11:35 Oxygen Delivery Method Room Air 06/24/24 11:35 BMI result Body Mass Index 29.0 Tobacco/Smoking Status: Tobacco use Status Tobacco use date assessed 06/24/24 06/24/24 11:37 Patient Tobacco Use Status Former Tobacco user 06/24/24 11:37 e-Cigarette/Vaping Use Never Used 06/24/24 11:37 PHQ-9: PHQ-9 Score PHQ-9: Total score 3 06/24/24 11:53 Depression Screening Interpretation: Negative Thrive Assessment: Date of Thrive Assessment Date Thrive assessed 06/24/24 06/24/24 11:37 Currently or been in a relationship where the following occur: No concerns reported Const General: healthy appearing, no acute distress, alert and awake Nutritional Appearance: well nourished Orientation/consciousness: oriented to person, oriented to place and oriented to time HENMT Ears: TM's normal bilaterally General nose exam: Normal nasal mucous membranes and turbinates present Eyes Conjunctivae: conjunctivae normal Sclerae: sclerae normal Pupils: Equal, round and reactive pupils present Neck Neck: Yes no lymphadenopathy and Yes no JVD Thyroid: Thyroid normal Carotids: no bruits Resp Effort & Inspection: normal respiratory effort and not tachypneic Auscultation: no crackles, no rales, no rhonchi and no wheezes Cardio Rate: regular rate Rhythm: regular rhythm Heart sounds: no murmurs and normal S1 and S2 GI Palpation (GI): Soft to palpation, nontender, no hepatomegaly and no splenomegaly Auscultation: normal bowel sounds Skin General skin exam: no rashes or lesions noted and dry skin Neuro General: oriented to person, oriented to place and oriented to time Cranial nerves: Yes Equal, round and reactive pupils present Speech: No Abnormal speech present Gait exam (Neuro): Normal gait present Motor exam (neuro): no tremor noted Extrem Right upper extremity: full ROM Left upper extremity: full ROM Right lower extremity: full ROM; no edema Left lower extremity: full ROM; no edema Psych Mental Status: mental status grossly normal Speech and movement: Normal speech and movement present Affect: normal affect Attitude: cooperative Thought process: Normal thought process present Results Reviewed Results Reviewed: Laboratory Tests 06/14/24 06/14/24 10:05 10:07 WBC 6.7 RBC 5.01 Hgb 15.8 Hct 47.0 MCV 93.8 MCH 31.5 MCHC 33.6 RDW 13.1 Plt Count 220 MPV 10.2 Sodium 140 Potassium 4.6 Chloride 103 Carbon Dioxide 30 H Anion Gap 12 BUN 15 Creatinine 0.92 Estimated GFR > 60 Fasting Glucose 144 H Estimat Average Glucose 137 Hemoglobin A1c % 6.4 H Calcium 9.4 Total Bilirubin 0.5 AST 39 H ALT 35 Alkaline Phosphatase 46 Total Protein 6.8 Albumin 4.3 Triglycerides 50 Cholesterol 139 LDL Cholesterol, Calc 86 HDL Cholesterol 43 25-OH Vitamin D Total 73.6 Urine Color Yellow Urine Appearance Clear Urine pH 5.5 Ur Specific Ridge 1.025 Urine Protein Negative Urine Glucose (UA) Negative Urine Ketones Trace Urine Blood Negative Urine Nitrite Negative Ur Leukocyte Esterase Negative Coding Level of Care Code Est Pt Level 4 (64400) Diagnoses Recurrent cough R05.8 Gastroesophageal reflux disease without esophagitis K21.9 Esophagitis presence: without esophagitis Overweight (BMI 25.0-29.9) E66.3 Degeneration of intervertebral disc of lumbar region with discogenic back pain M51.360 Disc-related pain type: discogenic back pain only Pure hypercholesterolemia E78.00 Chronic obstructive pulmonary disease, unspecified COPD type J44.9 COPD type: unspecified COPD Insomnia, unspecified type G47.00 Insomnia type: unspecified Additional Codes CLARI-7 Assessment Billing - CLARI-7 Assessment Tool: CLARI-7 Assessment 53854 ([id number]) PHQ-9 - 72253 - PHQ-9 Billing: Yes ([id number]) Time Spent (min) 39 Assessment & Plan Assessment & Plan (1) Recurrent cough: Code(s): R05.8 - Other specified cough Category: Medical (2) GERD (gastroesophageal reflux disease): Code(s): K21.9 - Gastro-esophageal reflux disease without esophagitis Category: Medical Qualifiers: Esophagitis presence: without esophagitis Qualified Code(s): K21.9 - Gastro-esophageal reflux disease without esophagitis (3) Overweight (BMI 25.0-29.9): Code(s): E66.3 - Overweight Category: Medical (4) Lumbar degenerative disc disease: Code(s): M51.36 - Other intervertebral disc degeneration, lumbar region Category: Medical Qualifiers: Disc-related pain type: discogenic back pain only Qualified Code(s): M51.360 - Other intervertebral disc degeneration, lumbar region with discogenic back pain only (5) Pure hypercholesterolemia: Code(s): E78.00 - Pure hypercholesterolemia, unspecified Category: Medical (6) COPD (chronic obstructive pulmonary disease): Code(s): J44.9 - Chronic obstructive pulmonary disease, unspecified Category: Medical Qualifiers: COPD type: unspecified COPD Qualified Code(s): J44.9 - Chronic obstructive pulmonary disease, unspecified (7) Insomnia: Code(s): G47.00 - Insomnia, unspecified Category: Medical Qualifiers: Insomnia type: unspecified Qualified Code(s): G47.00 - Insomnia, unspecified Plan Efforts will focus on maintaining Type 2 Diabetes Mellitus under control through enhanced lifestyle and pharmacological management, aimed at maintaining A1c levels within goal. No adjustments in the current therapy of rosuvastatin is needed. Dietary modifications are indicated, will continue to monitor liver enzyme. As it relates to chronic, this appears to be related to uncontrolled GERD. An interim increase in Protonix was advised to manage intensified acid reflux while coordination to reschedule the missed radiology test for deeper evaluation. Reinforced dash diet and continue monitoring blood pressure. Continue Xopenex HFA 2 puffs inhalation q.4-6 hours p.r.n., umedclidinium 62.5 mcg/actuation 1 inh daily for COPD. Continue tramadol 50 mg q.6 to 8 H p.r.n. and cyclobenzaprine 10 mg t.i.d. p.r.n. for chronic back pain. Currently managing insomnia we will lorazepam 0.5 mg daily p.r.n. Patient was informed and verbally consented to the use of an ambient scribe for clinic note documentation during this visit. Orders: Orders Complete Blood Count Auto Diff 4 Months E66.3 - Overweight, E78.00 - Pure hypercholesterolemia, unspecified, J44.1 - Chronic obstructive pulmonary disease with (acute) exacerbation, J44.9 - Chronic obstructive pulmonary disease, unspecified, K21.9 - Gastro-esophageal reflux disease without esophagitis, R73.01 - Impaired fasting glucose Lipid Panel 4 Months E66.3 - Overweight, E78.00 - Pure hypercholesterolemia, unspecified, J44.1 - Chronic obstructive pulmonary disease with (acute) exacerbation, J44.9 - Chronic obstructive pulmonary disease, unspecified, K21.9 - Gastro-esophageal reflux disease without esophagitis, R73.01 - Impaired fasting glucose TSH reflex Free T4 4 Months E66.3 - Overweight, E78.00 - Pure hypercholesterolemia, unspecified, J44.1 - Chronic obstructive pulmonary disease with (acute) exacerbation, J44.9 - Chronic obstructive pulmonary disease, unspecified, K21.9 - Gastro-esophageal reflux disease without esophagitis, R73.01 - Impaired fasting glucose Vitamin D 25-OH Total 4 Months E66.3 - Overweight, E78.00 - Pure hypercholesterolemia, unspecified, J44.1 - Chronic obstructive pulmonary disease with (acute) exacerbation, J44.9 - Chronic obstructive pulmonary disease, unspecified, K21.9 - Gastro-esophageal reflux disease without esophagitis, R73.01 - Impaired fasting glucose Comprehensive [place]. Panel Fast 4 Months E66.3 - Overweight, E78.00 - Pure hypercholesterolemia, unspecified, J44.1 - Chronic obstructive pulmonary disease with (acute) exacerbation, J44.9 - Chronic obstructive pulmonary disease, unspecified, K21.9 - Gastro-esophageal reflux disease without esophagitis, R73.01 - Impaired fasting glucose UA CC w/rflx Micro + Cult 4 Months E66.3 - Overweight, E78.00 - Pure hypercholesterolemia, unspecified, J44.1 - Chronic obstructive pulmonary disease with (acute) exacerbation, J44.9 - Chronic obstructive pulmonary disease, unspecified, K21.9 - Gastro-esophageal reflux disease without esophagitis, R73.01 - Impaired fasting glucose Hemoglobin A1c 4 Months E66.3 - Overweight, E78.00 - Pure hypercholesterolemia, unspecified, J44.1 - Chronic obstructive pulmonary disease with (acute) exacerbation, J44.9 - Chronic obstructive pulmonary disease, unspecified, K21.9 - Gastro-esophageal reflux disease without esophagitis, R73.01 - Impaired fasting glucose Medications: New pantoprazole (Protonix) 40 mg PO DAILY 90 tabs 3RF Refilled lorazepam 0.5 mg PO DAILY 30 days PRN 30 tabs 0RF anxiety Discontinued pantoprazole Discontinued Reason: Doctor's Order 20 mg PO DAILY 90 tabs 3RF 90 days Patient Instructions: Patient to return in 4 months for follow up on these chronic conditions.
--- OUTSIDE RECORDS SUMMARY | 2024-06-24 12:39 | XMS_ITS | Patient Health Record ---
Author Organization [facility] Address [address] [place] [address] Support Name Relationship Address Phone VIPUL FELIX Emergency Contact [address] [place], [place] [phone] JOSE EDUARDO BAH Guarantor Unknown [phone] Reason For Referral No Information Plan Of Treatment No Information Insurance Providers Payer Name Payer Address Payer Phone Subscriber Number Group Number Insured Name Patient Relationship to Insured Coverage Start Date Coverage End Date [place] - J13 [address] [place] [address] [id number] JOSE EDUARDO GROVES Self - patient is the insured [facility] [address] [place] [address] [id number] JOSE EDUARDO GROVES Self - patient is the insured
--- OUTSIDE RECORDS SUMMARY | 2024-06-24 12:39 | XMS_ITS | Data Portability ---
Author Organization [place] [facility] Address [address] [place] [id number] Care Team Providers Care Baton Twirler Name Role Phone SID GUZMÁN Referring Provider [...] Recorded Time Feeling of lump in throat [id number] Active 025 LORRAINE ZUNIGA MD [address] [place] [address], [facility] [place], [address] , [place] [facility] 09:58:00 Problem Notes None recorded. Procedures Surgical History Date Name Laterality Status Provider Name and Address Organization Details Recorded Time 04/15/2024 FOL_DP completed LORRAINE ZUNIGA MD [address] [place] [address], [phone], [place] [facility] 04/14/2024 17:24:59 Imaging Results None recorded. Procedure [...] Updated DateTime 04/15/2024 187.96 cm 28.2 kg/m2 40660.32 g Basia Mauricio [place] - [facility] 04/15/2024 09:37:11 Social History None recorded. Functional Status None recorded. Mental Status None recorded. Family History Nothing Reported. Medical History Condition Response Arthritis Y COPD Y GERD/Reflux Y Past Encounters Encounter ID Performer Location Encounter Start Date Encounter Closed Date Diagnosis/Indication Diagnosis SNOMED-CT Code Diagnosis ICD10 Code Diagnosis Note [id number] LORRAINE ZUNIGA MD [facility] [address] [place] [address] 04/15/2024 09:26:38 04/15/2024 11:44:48 Feeling of lump in throat [id number] R09.89 Health Concerns Section Related Observation LastModified by Organization Detai ls LastModified Time None Recorded Concern Status LastModified by Organization Details LastModified Time None Recorded Advance Directives Directive None Recorded Payers Insurance Date Sequence Insurance Name Policy Number Policy Manning Covered Member ID Manning Member ID Guarantor Name 04/15/2024 1 MEDICARE B-[place]: [facility] [employer] Francesco Calvert [id number] Francesco Calvert 04/15/2024 2 [facility] [employer] [facility] [employer] - [facility] [id number] Alivia Falk Nehal [id number] Francesco Calvert Notes Date Note Type Note [...] 2010alcohol + stopped 199508/05/2023 [facility] lung bases, atelectasis versus inflammatory process spends winter in [place] x 4 months, just came back yesterdayfather had throat cancer LORRAINE ZUNIGA MD [address] [facility] [address], [place], [address], [facility] - [facility] 04/15/2024 09:59:27
== END 2024-06-24 12:17 | disposition home or self-care (01) ==
LOC: HO.HMCH 11:32
PROVIDERS: PCP Internal Medicine
DX: R05.8 Other specified cough (principal); J44.9 Chronic obstructive pulmonary disease, unspecified; E66.3 Overweight; Z68.29 Body mass index [BMI] 29.0-29.9, adult; K21.9 Gastro-esophageal reflux disease without esophagitis; M51.360 Other intervertebral disc degeneration, lumbar region with discogenic back pain only; E78.00 Pure hypercholesterolemia, unspecified; G47.00 Insomnia, unspecified

== ENCOUNTER → 2024-06-24 11:31 | Outpatient (BNVA) | payer MEDICARE, OTHER, SELFPAY | PROVIDERS: PCP Internal Medicine | DX: R05.8 Other specified cough (principal); K21.9 Gastro-esophageal reflux disease without esophagitis; M51.360 Other intervertebral disc degeneration, lumbar region with discogenic back pain only; E78.00 Pure hypercholesterolemia, unspecified; J44.9 Chronic obstructive pulmonary disease, unspecified; G47.00 Insomnia, unspecified; E66.3 Overweight; Z68.29 Body mass index [BMI] 29.0-29.9, adult; Z71.3 Dietary counseling and surveillance; Z87.891 Personal history of nicotine dependence | CPT/HCPCS: 96127; 99212 ==

== ENCOUNTER 2024-10-15 08:18 | Outpatient (REF) | payer MEDICARE, OTHER, SELFPAY ==
--- NOTE | ~2024-10-15 | FL_ITS ---
EXAMINATION: XR FLUOROSCOPY UPPER GI WITH AIR CLINICAL INFORMATION: Acid reflux and heartburn COMPARISON: None available. TECHNIQUE: Routine upper GI air contrast study was performed in upright and lying position FINDINGS: Following oral administration of thick barium and effervescent granules and upright view there is normal propagation bolus from the oral cavity through the pharynx, esophagus into stomach without obstruction, narrowing or stricture. There is mild retention of barium in the vallecula and piriform sinuses without laryngeal penetration or aspiration. On placing patient supine and prone lying the course, caliber and peristalsis of the stomach, duodenum is normal. The mucosal pattern of stomach and duodenum is normal. There is moderate gastroesophageal reflux extending into the upper thoracic esophagus but no hiatal hernia seen. FLUOROSCOPY TIME: Minutes 30 seconds DOSE AREA PRODUCT: 62.64 uGy-m2 (microgray-meter squared) FL/FL upper GI w air IMPRESSION: Moderate to large gastroesophageal reflux without hiatal hernia. Electronically signed by: Norman Trejo MD 10/15/2024 12:42 PM EDT
--- OUTSIDE RECORDS SUMMARY | 2024-10-15 08:43 | XMS_ITS | Patient Health Record ---
Author Organization [facility] Address [address] [place] [phone] Care Team Providers Care Tour Manager Name Role Phone Jimmy Ling Unavailable [phone] Reason For Referral No Information Plan Of Treatment No Information
--- OUTSIDE RECORDS SUMMARY | 2024-10-15 08:43 | XMS_ITS | Patient Health Record ---
Author Organization [facility] Address [address] [place] [address] Support Name Relationship Address Phone VIPUL FELIX Emergency Contact [address] [place], [place] [phone] JOSE EDUARDO BAH Guarantor Unknown Reason For Referral No Information Plan Of Treatment No Information Insurance Providers Payer Name Payer Address Payer Phone Subscriber Number Group Number Insured Name Patient Relationship to Insured Coverage Start Date Coverage End Date [employer] of [place] - J13 [address] [place] [address] [id number] JOSE EDUARDO GROVES Self - patient is the insured [facility] [address] [place] [phone] [id number] JOSE EDUARDO GROVES Self - patient is the insured
== END 2024-10-15 08:19 | disposition home or self-care (01) ==
LOC: HO.XRAY 08:18
PROVIDERS: PCP Internal Medicine; Visit Provider Internal Medicine
DX: K21.9 Gastro-esophageal reflux disease without esophagitis (principal); R12 Heartburn; R05.8 Other specified cough; J31.2 Chronic pharyngitis
CPT/HCPCS: 74246

== ENCOUNTER → 2024-10-15 08:20 | Outpatient (BNV) | payer MEDICARE, OTHER, SELFPAY | PROVIDERS: PCP Internal Medicine; Visit Provider Radiology Diagnostic Radiology | DX: K21.9 Gastro-esophageal reflux disease without esophagitis (principal) | CPT/HCPCS: 74246 ==

== ENCOUNTER 2024-11-25 08:24 | Outpatient (REF) | payer MEDICARE, OTHER, SELFPAY ==
--- OUTSIDE RECORDS SUMMARY | 2024-11-25 08:43 | XMS_ITS | Patient Health Record ---
Author Organization [facility] Address [address] [place] [phone] Care Team Providers Care Telephone Repairer Name Role Phone Jimmy Ling Unavailable [phone] Reason For Referral No Information Plan Of Treatment No Information
--- OUTSIDE RECORDS SUMMARY | 2024-11-25 08:43 | XMS_ITS | Patient Health Record ---
Author Organization [facility] Address [address] [place] [address] Support Name Relationship Address Phone VIPUL FELIX Emergency Contact [address] [place], [place] [phone] JOSE EDUARDO BAH Guarantor Unknown Reason For Referral No Information Plan Of Treatment No Information Insurance Providers Payer Name Payer Address Payer Phone Subscriber Number Group Number Insured Name Patient Relationship to Insured Coverage Start Date Coverage End Date [employer] of [place] - J13 [address] [place] [address] [id number] JOSE EDUARDO GROVES Self - patient is the insured [facility] [address] [place] [address] [id number] JOSE EDUARDO GROVES Self - patient is the insured
--- OUTSIDE RECORDS SUMMARY | 2024-11-25 08:43 | XMS_ITS | Data Portability ---
Author Organization [place] - [facility], Allergy Address [address] [address] Care Team Providers Care Rivet Heater Name Role Phone ARIELLE SID Referring Provider Assessment Encounter Date Assessment Date [...] Recorded Time Feeling of lump in throat [id number] Active 025 LORRAINE ZUNIGA MD [address] [address], [place], [address] , [place] [facility] 09:58:00 Problem Notes None recorded. Procedures Surgical History Date Name Laterality Status Provider Name and Address Organization Details Recorded Time 04/15/2024 FOL_DP completed LORRAINE ZUNIGA MD [address] [place] [address], [address], [place] - [facility] 04/14/2024 17:24:59 Imaging Results None recorded. [...] Updated DateTime 04/15/2024 187.96 cm 28.2 kg/m2 57333.32 g Basia Mauricio [place] - [facility] 04/15/2024 09:37:11 Social History None recorded. Functional Status None recorded. Mental Status None recorded. Family History Nothing Reported. Medical History Condition Response Arthritis Y COPD Y GERD/Reflux Y Past Encounters Encounter ID Performer Location Encounter Start Date Encounter Closed Date Diagnosis/Indication Diagnosis SNOMED-CT Code Diagnosis ICD10 Code Diagnosis IMO Codes Diagnosis Note [id number] LORRAINE ZUNIGA MD [facility] [address] [place] [address] 04/15/2024 09:26:38 04/15/2024 11:44:48 Feeling of lump in throat 015621892 R09.89 Health Concerns Section Related Observation LastModified by Organization Detai ls LastModified Time None Recorded Concern Status LastModified by Organization Details LastModified Time None Recorded Advance Directives Directive None Recorded Payers Insurance Date Sequence Insurance Name Policy Number Policy Manning Covered Member ID Manning Member ID Guarantor Name 04/15/2024 1 MEDICARE B-NC: [employer] Francesco Calvert [id number] Francesco Calvert 04/15/2024 2 [facility] INDEMNITY PLAN (INDEMNITY) [id number] Alivia Falk Nehal [id number] Francesco Calvert Notes Date Note Type Note Provider Name and Address Organization Details Recorded Time 04/15/2024 text/html ROS as noted in the HPI recurring right throat painfeels a tickle that can trigger a cough lasting 5 minonset 1 year ago, lately more mildswallow study was requested but he did not get itno dysphagia for liquid or solidfeels mucus in esophagus, +GERD on pantoprazoletob+ 45 pack yr hx, stopped 2010alcohol + stopped 199508/05/2023 [facility] lung bases, atelectasis versus inflammatory process spends winter in [place] x 4 months, just came back yesterdayfather had throat cancer LORRAINE ZUNIGA MD 100 [facility] [address], [place], [address], [place] [facility] 04/15/2024 09:59:27
[2024-11-25 08:57] LABS: MANUAL DIFF FLAG NO
[2024-11-25 09:59] LABS: Hematocrit 48.3 % (42.0-52.0); Hemoglobin 15.6 g/dl (14.0-18.0); Imm Gran Abs Auto 0.03 X10*3/uL (0.00-0.03); Imm Gran Pct Auto 0.4 % (0.0-0.4); Lymphocytes Absolute Auto 1.5 X10*3/uL (1.2-4.9); Mean Corpuscular HGB Conc 32.3 g/dl (31.0-36.0); Mean Corpuscular Hemoglobin 30.8 pg (27.0-33.0); Mean Corpuscular Volume 95.5 fL (80.0-98.0); NRBC Abs Auto 0.000 X10*3/uL (0.0-0.012); NRBC Pct Auto 0.0 /100WBC (0.0-0.2); Platelet Count 224 X10*3/uL (160-400); Red Blood Count 5.06 X10*6/uL (4.60-5.80); White Blood Count 7.0 X10*3/uL (4.8-10.8)
[2024-11-25 10:31] LABS: Appearance Urine Clear; Glucose Urine UA Negative (Negative); PH 5.5 (5.0-9.0); Specific Gravity - Urine 1.025 (1.005-1.025)
[2024-11-25 11:03] LABS: Alanine Aminotransferase 26 U/L (0-40); Albumin Level 4.2 g/dL (3.5-5.0); Alkaline Phosphatase 51 U/L (39-117); Anion Gap 10 (12-20); Aspartate Amino Transferase 27 U/L (5-37); Blood Urea Nitrogen 12 mg/dL (9-16); Calcium 8.9 mg/dL (8.4-10.2); Carbon Dioxide 31 mmol/L (22-29); Chloride 107 mmol/L (96-108); Cholesterol 135 mg/dL (<200); Estimated Glomerular Filt Rate > 60; HDL Cholesterol 41 mg/dL (>40); Potassium 4.1 mmol/L (3.3-5.1); Sodium 144 mmol/L (135-145); Total Protein 6.4 g/dL (6.5-8.0); Triglycerides 63 mg/dL (<150)
== END 2024-11-25 08:25 | disposition home or self-care (01) ==
LOC: HO.LAB 08:24
PROVIDERS: PCP Internal Medicine
DX: R30.0 Dysuria (principal); J44.1 Chronic obstructive pulmonary disease with (acute) exacerbation; K21.9 Gastro-esophageal reflux disease without esophagitis; E78.00 Pure hypercholesterolemia, unspecified; J31.2 Chronic pharyngitis; E11.9 Type 2 diabetes mellitus without complications; M51.360 Other intervertebral disc degeneration, lumbar region with discogenic back pain only; M50.30 Other cervical disc degeneration, unspecified cervical region; M19.011 Primary osteoarthritis, right shoulder; F41.9 Anxiety disorder, unspecified; R73.01 Impaired fasting glucose; E66.3 Overweight; Z68.28 Body mass index [BMI] 28.0-28.9, adult; Z79.891 Long term (current) use of opiate analgesic; Z79.899 Other long term (current) drug therapy
CPT/HCPCS: 36415; 80053; 80061; 81003; 82306; 83036; 84443; 85025; 99212

== ENCOUNTER 2024-11-25 11:19 | Outpatient (AMB) | payer MEDICARE, OTHER, SELFPAY ==
[2024-11-25 11:22] VITALS: BP 118/68; PULSE 73; O2SAT 92; BMI 28.1
--- NOTE | 2024-11-25 11:22 | MHC.PC.OV ---
Vital Signs 11/25/24 11:22 Height 6 ft 2 in Weight 219 lb BMI 28.1 BP 118/68 Blood Pressure Location Lt brachial Position Sitting Pulse 73 Pulse Source Pulse Oximeter Pulse Oximetry (%) 92 Oxygen Delivery Method Room Air Intake Visit Reasons: COPD/GERD/HLD with Dr. Gallagher Calender Roll Operator Required: No Accompanied by: Self / Same As Patient Allergies atorvastatin Adverse Reaction (Intermediate, Uncoded 11/25/24 11:41) myalgia Medication List - Last Reconciled 11/25/24 by Sunny Gallagher MD cyclobenzaprine 10 mg PO TID PRN levalbuterol tartrate 45 mcg/actuation (Xopenex HFA) 2 puffs inhalation Q4-6H PRN lorazepam 0.5 mg PO DAILY PRN 30 days meclizine 25 mg PO TID PRN pantoprazole (Protonix) 40 mg PO DAILY rosuvastatin 5 mg PO DAILY 90 days tadalafil 20 mg PO DAILY PRN tramadol 50 mg PO Q6-8H PRN umeclidinium 62.5 mcg/actuation (Incruse Ellipta) 1 inh inhalation DAILY 90 days Tobacco use date assessed: 11/25/24 Fall risk assessment: No Falls in past year Last assessed Fall Risk: 11/25/24 Dental Screening Dental Screen Date: 11/25/24 Did you have a dental visit in the last 12 months?: Yes Did you have a dental problem in the last 6 months where you did not have access to dental care?: No Was dental information given to patient?: Patient has dentist HPI COPD/GERD/HLD with Dr. Gallagher HPI Details Patient comes in today for his follow up visit States that he feels okay He recalls catching a cold when he was going down to [place] last month around October 31 or and that he's had recurrent cough and congestion during the 2 to 3 weeks that he was in [place] States that his symptoms have gradually improved over the next few weeks and that he now only has an occasional cough (coughs up minimal clear phlegm at times) He denies any headaches or dizziness; he denies any fever or sore throat Denies any chest pains, no increased SOB No nausea/vomiting, no abdominal pain No change in bowel habits noted He had his follow up labs done earlier today - to discuss his results [facility] Medical History (Updated 11/26/24 @ 07:03 by Sunny Gallagher MD) Diabetes mellitus Left-sided chest pain Overweight (BMI 25.0-29.9) GERD (gastroesophageal reflux disease) Carpal tunnel syndrome of right wrist Lumbar degenerative disc disease Degenerative disc disease, cervical Primary osteoarthritis, right shoulder Impaired fasting glucose Pure hypercholesterolemia COPD (chronic obstructive pulmonary disease) Surgical History Status post colonoscopy (~12/13/13) History of arthroplasty of right shoulder History of carpal tunnel release Family History Father CVD (cardiovascular disease) Cancer Mother No problems noted. Social History Housing: House Alcohol intake: former Patient Tobacco Use Status: Former Tobacco user e-Cigarette/Vaping Use: Never Used Second Hand Smoke Exposure: Yes service: No Current occupational status: retired Cognitive needs: No Hearing needs: No Vision needs: Yes Questionnaire PHQ-9 Over the last 2 weeks, how often have you been bothered by any of the following problems? Depression Screening Interpretation: Negative Depression Screening Done: Yes Source: Developed by Drs. Jimmy Guerra, Lesly Rivas, Maulik Herndon and colleagues, with an educational manyn from [employer]. Thrive Questionnaire Date Thrive assessed: 06/24/24 I am a: Patient What is your living situation today?: I have a steady place to live Within the past 12 months, did the food you bought not last and you didn't have the money to get more?: Never true Within the past 12 months, did you worry whether your food would run out before you got money to buy more?: Never true Do you have trouble paying for medicines?: No Do you have trouble getting transportation to medical appointments?: No Do you have trouble paying your heating and electricity bill?: No Do you have trouble taking care of your child, family member or friend?: No Do you have trouble with day-to-day activities such as bathing, preparing meals, shopping, managing finances, etc.?: No Are you currently unemployed and looking for a job?: No Are you interested in more education?: No Please select the resources that you would like help with: None Currently or been in a relationship where the following occur: No concerns reported THRIVE Score: 0 AUDIT C Alcohol Use Questionnaire (AUDIT-C) 1. How often do you have a drink containing alcohol?: Never 3. How often do you have six or more drinks on one occasion?: Never Total Score: 0 Score Reviewed/Action Taken: Yes CLARI-7 AMB Questionnaire CLARI-7 Date CLARI - 7 assessed: 06/24/24 Source: Developed by Drs. Jimmy Guerra, Lesly Rivas, Maulik Herndon and colleagues, with an educational manny from [employer]. Review of Systems Const Denies chills, Denies fatigue, Denies fever(s) and Denies headache(s) ENT Denies dysphagia, Denies dizziness, Denies otalgia, Denies headache(s), Denies neck pain, Denies odynophagia and Reports sore throat (recurrent) Card Denies chest pain, Denies irregular heart rhythm, Denies palpitations and Reports dyspnea on exertion (mild) Resp Denies chest congestion, Reports cough (occasional; non-productive), Reports dyspnea on exertion (mild) and Denies wheezing GI Denies abdominal pain, Denies constipation, Denies dysphagia, Denies heartburn, Denies diarrhea, Denies nausea, Denies odynophagia and Denies vomiting Denies difficulty urinating, Denies dysuria, Denies urinary frequency and Denies urinary urgency Musc Denies back pain, Denies arthralgias, Denies muscle cramps and Denies neck pain Skin/Breast Denies rash Neuro Denies dizziness and Denies headache(s) Endo Denies fatigue and Denies palpitations Aller/Immun Denies wheezing Physical exam (Primary Care) Vital Signs: Last Vital Signs Pulse 73 11/25/24 11:22 BP 118/68 11/25/24 11:22 Pulse Ox 92 11/25/24 11:22 Oxygen Delivery Method Room Air 11/25/24 11:22 BMI result Body Mass Index 28.1 Tobacco/Smoking Status: Tobacco use Status Tobacco use date assessed 11/25/24 11/25/24 11:26 Patient Tobacco Use Status Former Tobacco user 11/25/24 11:26 e-Cigarette/Vaping Use Never Used 11/25/24 11:26 Depression Screening Interpretation: Negative Thrive Assessment: Date of Thrive Assessment Date Thrive assessed 06/24/24 11/25/24 11:26 Currently or been in a relationship where the following occur: No concerns reported Const General: no acute distress and alert HENMT Ears: TM's normal bilaterally and EAC's normal Throat: Yes posterior oropharynx normal and Yes tonsils normal (no TP congestion noted) Neck Neck: Yes supple and No lymphadenopathy Thyroid: Thyroid normal Resp Auscultation: no crackles, no rales, no wheezes and diminished lung sounds bilateral Cardio Rate: regular rate Rhythm: regular rhythm Heart sounds: no murmurs GI Palpation (GI): Soft to palpation and nontender Auscultation: normal bowel sounds General: Yes no CVA tenderness Back/Spine/Pelvis Back: no CVA tenderness Thoracic/Lumbar Spine: lumbar spinal tenderness Skin Rashes: no rashes Extrem General: Yes no clubbing, cyanosis or edema Results Reviewed Results Reviewed: Laboratory Tests 11/25/24 11/25/24 08:49 08:55 WBC 7.0 Hgb 15.6 Hct 48.3 Plt Count 224 Sodium 144 Potassium 4.1 Creatinine 0.74 Estimated GFR > 60 Fasting Glucose 135 H Hemoglobin A1c % 6.4 H Calcium 8.9 AST 27 ALT 26 Triglycerides 63 Cholesterol 135 LDL Cholesterol, Calc 82 HDL Cholesterol 41 25-OH Vitamin D Total 67.8 TSH 1.07 Ur Specific [place] 1.025 Urine Protein Negative Urine Glucose (UA) Negative Urine Blood Negative Urine Nitrite Negative Ur Leukocyte Esterase Negative Coding Level of Care Code Est Pt Level 4 (45938) Complex EM visit Add On G2211 Diagnoses Chronic obstructive pulmonary disease, unspecified COPD type J44.9 COPD type: unspecified COPD Gastroesophageal reflux disease without esophagitis K21.9 Esophagitis presence: without esophagitis Chronic sore throat J31.2 Pure hypercholesterolemia E78.00 Type 2 diabetes mellitus without complication, without long-term current use of insulin E11.9 Diabetes mellitus type: type 2 Diabetes mellitus complication status: without complication Diabetes mellitus middle or intermediate school principal insulin use: without half-way use Degeneration of intervertebral disc of lumbar region with discogenic back pain M51.360 Disc-related pain type: discogenic back pain only Degenerative disc disease, cervical M50.30 Primary osteoarthritis, right shoulder M19.011 Anxiety F41.9 Overweight (BMI 25.0-29.9) E66.3 Assessment & Plan Assessment & Plan (1) COPD (chronic obstructive pulmonary disease): Code(s): J44.9 - Chronic obstructive pulmonary disease, unspecified Category: Medical Qualifiers: COPD type: unspecified COPD Qualified Code(s): J44.9 - Chronic obstructive pulmonary disease, unspecified Plan: Continue Incruse Ellipta 62.5 mcg 1 inhalation QD and Xopenex HFA 2 puffs every 6 hours only NEEDED His chest x-rays done back in July 2023 revealed (+) increased opacities in the posterior lung bases, which may represent atelectasis/scar, but an infectious/inflammatory process should also be considered in the appropriate clinical setting Will go ahead and refer patient for CT lung cancer screening (2) GERD (gastroesophageal reflux disease): Code(s): K21.9 - Gastro-esophageal reflux disease without esophagitis Category: Medical Qualifiers: Esophagitis presence: without esophagitis Qualified Code(s): K21.9 - Gastro-esophageal reflux disease without esophagitis Plan: Dietary restrictions reinforced His upper GI series done last month (October 2024) revealed (+) moderate to large gastroesophageal reflux without hiatal hernia Continue Pantoprazole 40 mg QD (3) Chronic sore throat: Code(s): J31.2 - Chronic pharyngitis Category: Medical Plan: He was previously referred to ENT for further evaluation of his recurrent sore throat/throat pain but states that he was never contacted by ENT to schedule him for an appointment As previously discussed and based on his recent upper GI series findings, his recurrent sore throat is most likely due to GERD/acid reflux and should improve or stabilize with continuous PPI therapy (4) Pure hypercholesterolemia: Code(s): E78.00 - Pure hypercholesterolemia, unspecified Category: Medical Plan: Results of his labs done earlier today reviewed and discussed with patient Reinforced low cholesterol diet Continue Rosuvastatin 5 mg QD - states that he has been tolerating this without any problems so far (he could not tolerate Atorvastatin due to increased myalgia) Will have him recheck his labs and fasting lipids in a few months for follow up (5) Diabetes mellitus: Code(s): E11.9 - Type 2 diabetes mellitus without complications Category: Medical Qualifiers: Diabetes mellitus type: type 2 Diabetes mellitus complication status: without complication Diabetes mellitus middle or intermediate school principal insulin use: without half-way use Qualified Code(s): E11.9 - Type 2 diabetes mellitus without complications Plan: His HgbA1c was at 6.4% on his labs done earlier today (in-office HgbA1c was at 6.7% a few months ago and his HgbA1c was at 6.3% back in July 2023 and at 6.1% a few months prior to that) - goal is at least <7.0% but ideally under 6.5% IF he still does not want to be started on any Rx for diabetes Reinforced low calorie/low carb diet; exercise as tolerated (6) Lumbar degenerative disc disease: Code(s): M51.36 - Other intervertebral disc degeneration, lumbar region Category: Medical Qualifiers: Disc-related pain type: discogenic back pain only Qualified Code(s): M51.360 - Other intervertebral disc degeneration, lumbar region with discogenic back pain only Plan: Reinforced activity and weight-lifting restrictions to minimize aggravating his low back pain Continue Cyclobenzaprine 10 mg TID PRN; he also has Tramadol 50 mg that he takes very sparingly and only when really needed for pain (7) Degenerative disc disease, cervical: Code(s): M50.30 - Other cervical disc degeneration, unspecified cervical region Category: Medical Plan: Patient states that his neck symptoms have remained mostly manageable lately (8) Primary osteoarthritis, right shoulder: Comment: S/P total right shoulder arthroplasty with Dr. Guadalupe Latham on 06/09/2018 Code(s): M19.011 - Primary osteoarthritis, right shoulder Category: Medical Plan: S/P total right shoulder arthroplasty with Dr. Guadalupe Latham a few years ago on 06/09/2018 with (+) significant improvement of his shoulder symptoms Follow up with orthopedics as scheduled (9) Anxiety: Code(s): F41.9 - Anxiety disorder, unspecified Category: Medical Plan: Continue Lorazepam 0.5 mg QD PRN (10) Overweight (BMI 25.0-29.9): Code(s): E66.3 - Overweight Category: Medical Plan: Reinforced diet/exercise as tolerated/lose weight Plan To return as scheduled in early February 2025 for his annual physical examination Orders: Orders Complete Blood Count Auto Diff 02/05/25 D64.9 - Anemia, unspecified, Z00.00 - Encounter for general adult medical examination without abnormal findings Lipid Panel 02/05/25 E78.00 - Pure hypercholesterolemia, unspecified, Z00.00 - Encounter for general adult medical examination without abnormal findings TSH reflex Free T4 02/05/25 E78.00 - Pure hypercholesterolemia, unspecified, Z00.00 - Encounter for general adult medical examination without abnormal findings UA CC w/rflx Micro + Cult 02/05/25 R30.0 - Dysuria, Z00.00 - Encounter for general adult medical examination without abnormal findings Prostate Specific Antigen 02/05/25 N40.0 - Benign prostatic hyperplasia without lower urinary tract symptoms, Z00.00 - Encounter for general adult medical examination without abnormal findings Comprehensive [place]. Panel Fast 02/05/25 E78.00 - Pure hypercholesterolemia, unspecified, Z00.00 - Encounter for general adult medical examination without abnormal findings Vitamin D 25-OH Total 02/05/25 E55.9 - Vitamin D deficiency, unspecified, Z00.00 - Encounter for general adult medical examination without abnormal findings Referrals Thoracic/General Surgery Referral Z12.2 - Encounter for screening for malignant neoplasm of respiratory organs
--- OUTSIDE RECORDS SUMMARY | 2024-11-25 14:34 | XMS_ITS | Data Portability ---
Author Organization [place] - [facility], Allergy Address [address] [address] Care Team Providers Care Concrete Finisher Apprentice Name Role Phone ARIELLE SID Referring Provider [...] Recorded Time Feeling of lump in throat [id number] Active 025 LORRAINE ZUNIGA MD [address] [address], [place], [address] , [place] [facility] 09:58:00 Problem Notes None recorded. Procedures Surgical History Date Name Laterality Status Provider Name and Address Organization Details Recorded Time 04/15/2024 FOL_DP completed LORRAINE ZUNGIA MD [address] [place] [address], [phone], [place] [facility] 04/14/2024 17:24:59 Imaging Results None recorded. Procedure [...] Updated DateTime 04/15/2024 187.96 cm 28.2 kg/m2 74686.32 g Basia Mauricio [place] - [facility] 04/15/2024 09:37:11 Social History None recorded. Functional Status None recorded. Mental Status None recorded. Family History Nothing Reported. Medical History Condition Response Arthritis Y COPD Y GERD/Reflux Y Past Encounters Encounter ID Performer Location Encounter Start Date Encounter Closed Date Diagnosis/Indication Diagnosis SNOMED-CT Code Diagnosis ICD10 Code Diagnosis IMO Codes Diagnosis Note [id number] LORRAINE ZUNIGA MD [facility] 100 [place] [address] 04/15/2024 09:26:38 04/15/2024 11:44:48 Feeling of lump in throat [id number] R09.89 Health Concerns Section Related Observation LastModified by Organization Detai ls LastModified Time None Recorded Concern Status LastModified by Organization Details LastModified Time None Recorded Advance Directives Directive None Recorded Payers Insurance Date Sequence Insurance Name Policy Number Policy Manning Covered Member ID Manning Member ID Guarantor Name 04/15/2024 1 MEDICARE B-IN: [employer] Francesco Calvert [id number] Francesco Calvert 04/15/2024 2 [facility] INDEMNITY PLAN (INDEMNITY) [id number] Al[address] Falk Nehal [id number] Francesco Calvert Notes Date Note Type Note [...] 2010alcohol + stopped 199508/05/2023 [facility] lung bases, atelectasis versus inflammatory process spends winter in [place] x 4 months, just came back yesterdayfather had throat cancer LORRAINE ZUNIGA MD 100 [facility] [address], [place], [address], [place] [facility] 04/15/2024 09:59:27
== END 2024-11-25 11:56 | disposition home or self-care (01) ==
LOC: HO.HMCH 11:19
PROVIDERS: PCP Internal Medicine; Visit Provider Internal Medicine
DX: J44.9 Chronic obstructive pulmonary disease, unspecified (principal); K21.9 Gastro-esophageal reflux disease without esophagitis; J31.2 Chronic pharyngitis; E78.00 Pure hypercholesterolemia, unspecified; E11.9 Type 2 diabetes mellitus without complications; M51.360 Other intervertebral disc degeneration, lumbar region with discogenic back pain only; M50.30 Other cervical disc degeneration, unspecified cervical region; M19.011 Primary osteoarthritis, right shoulder; F41.9 Anxiety disorder, unspecified; E66.3 Overweight

== ENCOUNTER 2025-01-28 09:17 | Outpatient (REF) | payer MEDICARE, OTHER, SELFPAY ==
--- NOTE | ~2025-01-28 | CT_ITS ---
EXAMINATION: CT LUNG SCREENING HISTORY: Z87.891 - Personal history of nicotine dependence TECHNIQUE: Low dose axial images were obtained from the sternal notch to upper abdomen without IV contrast per standard departmental protocol. Sagittal and coronal reformatted images were also obtained and reviewed. One or more of the following techniques was used for dose reduction: Automated exposure control, adjustment of the mA and/or kV according to patient size, use of iterative reconstruction technique. DLP: 38 mGy-cm COMPARISON: There are no prior studies available for comparison. FINDINGS: Lung nodules: There is a 2 mm right apical lung nodule (series 5, image 36). A linear branching opacity seen in the right lower lobe (series 5, image 105) which likely represents an obstructed airway. There is scarring in the lingula. Emphysema: mild Coronary Calcification: mild Aortic Arch Calcification: mild Potentially Significant Incidentals : none Additional Chest Findings: There is no pleural or pericardial effusion. No mediastinal or axillary lymphadenopathy is identified. Visualized upper abdomen: The visualized portions of the liver, spleen, and adrenals have an unremarkable unenhanced appearance. CT/CT lung screening IMPRESSION: No suspicious pulmonary nodules are identified. LUNG-RADS ASSESSMENT: Lung-RADS 2: Benign MANAGEMENT: Continue annual screening with LDCT in 12 months Category S: N/A Electronically signed by: Jimmy Sanchez MD 01/28/2025 11:42 AM [facility]
--- OUTSIDE RECORDS SUMMARY | 2025-01-28 09:52 | XMS_ITS | Patient Health Record ---
Author Organization [facility] Address [address] [place] [address] Support Name Relationship Address Phone VIPUL FELIX Emergency Contact [address] [place], [place] [phone] JOSE EDUARDO BAH Guarantor Unknown [phone] Reason For Referral No Information Plan Of Treatment No Information Insurance Providers Payer Name Payer Address Payer Phone Subscriber Number Group Number Insured Name Patient Relationship to Insured Coverage Start Date Coverage End Date [employer] of [place] - J13 [address] [place] [id number] JOSE EDUARDO GROVES Self - patient is the insured [facility] [address] [place] [address] [id number] JOSE EDUARDO GROVES Self - patient is the insured
--- OUTSIDE RECORDS SUMMARY | 2025-01-28 09:53 | XMS_ITS | Patient Health Record ---
Author Organization [facility] Address [address] [place] [id number] Care Team Providers Care Corporate Officer Name Role Phone Jimmy Ling Unavailable [phone] Reason For Referral No Information Plan Of Treatment No Information
== END 2025-01-28 09:18 | disposition home or self-care (01) ==
LOC: HO.CT 09:17
PROVIDERS: PCP Internal Medicine; Visit Provider Physician Assistant Medical
DX: Z12.2 Encounter for screening for malignant neoplasm of respiratory organs (principal); Z87.891 Personal history of nicotine dependence
CPT/HCPCS: 71271; G0296

== ENCOUNTER 2025-01-28 09:31 | Outpatient (AMB) | payer MEDICARE, OTHER, SELFPAY ==
--- NOTE | 2025-01-28 07:53 | MHC.OFFVIS ---
Intake Visit Reasons: Former Smoker Allergies atorvastatin Adverse Reaction (Intermediate, Uncoded 11/25/24 11:41) myalgia HPI HPI Former Smoker: Details: Initial visit for this 74yo former smoker with a 50+PYH. Patient started smoking at age 14 for 46 years at 1+ppd. He quit in 2010. . Denies marijuana use. Denies second hand smoke exposure. Denies exposure to chemicals or substances like asbestos. . Reports family history of lung cancer. Father 80, Sister 72, Brother 78. Denies personal history of cancers. Denies chest CT in last year. . Denies recent travel outside the [place]. Denies recent respiratory illness or recent hospitalization for respiratory issues. History of testing positive for COVID. Admits receiving COVID Vaccine. . Denies fever, chills, new/worsening cough, hemoptysis, hoarseness or dysphagia. Denies significant chest pain, significant dyspnea or unintentional weight loss. Patient Lung Cancer Screening Questionnaire reviewed with patient by provider. . Shared Decision Making Completed. Patient meets criteria. Discussed in detail with patient, the risk vs benefit of LDCT screening. Patient consents to proceed with scan. Discussed smoking cessation. [facility] Medical History (Updated 01/28/25 @ 09:46 by Neeru Humphries PA-C) Personal history of nicotine dependence Diabetes mellitus Left-sided chest pain Overweight (BMI 25.0-29.9) GERD (gastroesophageal reflux disease) Carpal tunnel syndrome of right wrist Lumbar degenerative disc disease Degenerative disc disease, cervical Primary osteoarthritis, right shoulder Pure hypercholesterolemia COPD (chronic obstructive pulmonary disease) Surgical History Status post colonoscopy (~12/13/13) History of arthroplasty of right shoulder History of carpal tunnel release Family History (Updated 01/28/25 @ 09:51 by Neeru Humphries PA-C) Father CVD (cardiovascular disease) Cancer Mother No problems noted. Paternal Grandfather AAA (abdominal aortic aneurysm) Brother Lung cancer Sister Lung cancer Social History (Updated 01/28/25 @ 09:49 by Neeru Humphries PA-C) Housing: House Alcohol intake: former Patient Tobacco Use Status: Former Tobacco user Years Smoked: (onset 14yo, 1+ppd x 46yrs, 50+PYH, quit 2010) e-Cigarette/Vaping Use: Never Used Second Hand Smoke Exposure: Yes service: No Current occupational status: retired Cognitive needs: No Hearing needs: No Vision needs: Yes Assessment & Plan Assessment & Plan (1) Personal history of nicotine dependence: Comment: (onset 14yo, 1+ppd x 46yrs, 50+PYH, quit 2010) Code(s): Z87.891 - Personal history of nicotine dependence Category: Medical Plan: - SDM visit completed today in office. - Patient meets criteria for LDCT for lung cancer screening purposes and is asymptomatic. - Smoking cessation counseling offered. Patients can always call [phone]. - Will arrange for a LDCT scan of the chest for screening purposes at [facility]. - Risks, benefits, and alternatives were discussed in detail and the patient agrees to proceed. - Risks discussed include but are not limited to: radiation exposure, anxiety during testing and while awaiting results, false negatives, false positives and possibility of additional intervention such as further imaging or surgical procedures for benign disease. - Benefits are obviously detection of lung cancer at an early stage which can lead to improved outcomes. - Discussed the importance of screening program compliance with adherence to yearly LDCT scan as scheduled - or sooner interval scans for personalized screening regimen. - Discussed follow up plan. Our office will send a letter discussing results and if needed set up phone call and office visit based on CT findings. - Patient educated on results categorization and the management decisions for suspicious findings potentially found on the screening LDCT scan. Any patient with a Lung RADS score of 3 or 4 will be reviewed by a multidisciplinary team at [facility] to form a plan of action in regards to scan findings. - If further work up is warranted for a suspicious lung finding this will be followed by the Lung Cancer Screening program in conjunction with the Thoracic Surgery Department at [facility]. - A copy of the office note and LDCT will be sent to the patient's PCP - as well as documentation on any associated further plans of care. - Incidental findings on LDCT are the PCP's responsibility. These findings are indicated with an S finding on the LDCT Assessment. A note discussing the findings will be sent to the PCP who is then responsible for further management. - All questions answered.? Plan Of Note For PCP: The USPTF recommends all men aged 65-75 who have ever smoked have a one time Abdominal Ultrasound to screen for AAA. Recommend if not done prior. Coding Level of Care Code Lung Cancer Screening G0296 Diagnoses Personal history of nicotine dependence Z87.891
== END 2025-01-28 10:36 | disposition home or self-care (01) ==
LOC: HO.HPS 09:32
PROVIDERS: PCP Internal Medicine; Referring Provider Internal Medicine; Visit Provider Physician Assistant Medical
DX: Z87.891 Personal history of nicotine dependence (principal)
CPT/HCPCS: G0296

== ENCOUNTER → 2025-01-28 10:05 | Outpatient (BNV) | payer MEDICARE, OTHER, SELFPAY | PROVIDERS: PCP Internal Medicine; Visit Provider Radiology Diagnostic Radiology | DX: Z87.891 Personal history of nicotine dependence (principal) | CPT/HCPCS: 71271 ==